=== PATIENT | male | born 1935 | race Caucasian/White ===

== ENCOUNTER 2016-11-05 14:40 | Inpatient (IN) ==
[2016-11-05] MEDS ORDERED: FUROSEMIDE 100 MG/10 ML VIAL IV STA (15:32)
--- NOTE | 2016-11-05 15:54 | EKG Report ---
Stationary ECG Study [facility] ER Test Date: 11/05/2016 3:53:13 PM Pat Name: JEANETTE SOLORZANO Department: Room: Gender: M Upper Marker: : 1935 Requested by: Mike Saldivar Order Number: [id number] Reading MD: CHATO ANDERSON Intervals [place] Rate: 77 P: 76 [place]: 170 QRS: 47 QRSD: 92 T: -1 QT: 368 QTc: 400 Interpretive Statements SINUS RHYTHM POSSIBLE INFERIOR MYOCARDIAL INFARCTION, OF INDETERMINATE AGE Electronically Signed On 11-09-16 16:11:53 CDT by CHATO ANDERSON [email or web address]
--- NOTE | 2016-11-05 15:57 | XRay Report ---
Referring Physician: Mike Alfaro Exam: XR chest 1V portable Date: November 05, 2016 at 3:42 PM Reason: Shortness of breath Comparison: Chest 2 views March 29, 2016 Findings: The cardiac silhouette is mildly enlarged. There are also diffuse reticular opacities within both lungs. This could represent pulmonary edema or pneumonia. No pneumothorax or pleural effusion is identified. There is mild stable apical pleural thickening bilaterally. No acute osseous process is seen. Impression: 1. The cardiac silhouette is mildly enlarged today. This could reflect mild cardiomegaly or a pericardial effusion. 2. There are diffuse reticular opacities within both lungs. This could represent pulmonary edema or pneumonia. Pulmonary edema is favored. PROCEDURE INTERPRETED AT [facility] DEPARTMENT OF RADIOLOGY Final Report Signed by: Dr. Kilo Rider
[2016-11-05 16:04] LABS: Basophils % 0.4 % (0.0-0.8); Eosinophils # 0.1 10*3/uL (0.0-0.87); Eosinophils % 1.1 % (0.00-10.9); Hematocrit 33.5 VOL% (42.0-52.0); Hemoglobin 11.4 GM/DL (14.0-18.0); Immature Granulocytes % 0.4 %; Immature Granulocytes Absolute 0.03 #; Lymphocytes # 1.3 10*3/uL (1.4-4.0); Lymphocytes % 18.7 % (21.2-54.2); Mean Corpuscular Hemoglobin 33 PG (27-34); Mean Corpuscular Volume 95.4 FL (87-102); Mean Platelet Volume 11.5 FL (9.6-12.0); Monocytes # 0.6 10*3/uL (0.11-0.8); Monocytes % 7.9 % (1.7-12.7); Neutrophils % 71.5 % (38.7-73.9); Platelet Count 286 T/CUMM (130-400); Red Blood Count 3.51 MC/CUMM (3.8-5.5); Red Cell Distribution Width 14.6 % (9.3-17.3); White Blood Count 7.1 T/CUMM (4-12)
[2016-11-05] MEDS ORDERED: FUROSEMIDE 100 MG/10 ML VIAL ONE (16:17)
[2016-11-05 16:34] LABS: Alanine Aminotransferase 91 U/L (16-61); Albumin 2.4 G/DL (3.4-5.0); Alkaline Phosphatase 260 U/L (45-117); Aspartate Amino Transferase 73 U/L (0-37); Blood Urea Nitrogen 8 MG/DL (7-18); Calcium 8.5 MG/DL (8.5-10.1); Glucose 251 MG/DL (74-106); Magnesium 1.9 MG/DL (1.8-2.4); Osmolality,Calculated 275.1 MOS/KG (273-304); Potassium 4.6 MMOL/L (3.5-5.1); Sodium 135 MMOL/L (136-145); Total Protein 6.9 G/DL (6.4-8.3); Troponin I Only < 0.015 NG/ML (0.00-0.045)
[2016-11-05] MEDS ORDERED: LEVOFLOXACIN INJ 500 MG in PREMIX 1 EACH IV STA (16:48)
--- NOTE | 2016-11-05 16:55 | Emergency Department Note ---
Liang Dobbins Hilary, am scribing for, and in the presence of, Mike Alfaro MD 15:28. Dominic Dobbins Phillip K, MD, personally performed the services described in this documentation, ascribed by Ciera Tavera in my presence, and it is both accurate and complete [id number] . Arrival - Arrival Chief Complaint: Upper Respiratory Stated Complaint: cant breathe, hurting bad ED Nursing Triage Note: C/o cough, congestion, body aches, sore throat, and wheezing-onset last week. Mode of Arrival: Wheelchair Limitations: No Limitations Source: Patient, RN Notes Reviewed - History of Present Illness HPI Narrative: Pt is a 80 y/o male presenting to the ED with c/o upper respiratory pain which onset 6 days ago. Pt called Dr Gonsales on Wednesday and started cough medicine and Z junaid. Pt confirms sore throat, cough with yellow phlegm, SOB upon exertion, chest pain upon coughing, and chronic back pain but denies fever. Pt has a PMHx of CAD, HTN, Cerebrovascular Accident, TIA, IDDM, Hypothyroid, Asbestosis and celiac disease. No other complaints or problems stated in the ED. Onset (ago): day(s) Allergies/Adverse Reactions: Allergies Allergy/AdvReac Type Severity Reaction Status Date / Time aspirin AdvReac Nausea Verified 11/21/15 11:45 Home Medications: Home Medications Medication Instructions Recorded Confirmed Type Aspirin [Ecotrin] 81 mg PO DAILY 11/21/15 03/26/16 History Atorvastatin [Lipitor] 40 mg PO DAILY 11/21/15 03/26/16 History Cilostazol [Pletal] 100 mg PO BID 11/21/15 03/26/16 History Ferrous Sulfate 1 tablet PO BID 11/21/15 03/26/16 History Folic Acid 0.8 mg PO DAILY 11/21/15 03/26/16 History Gabapentin 600 mg PO BEDTIME 11/21/15 03/26/16 History Insulin Glargine [Lantus] 14 unit SUBCUT BEDTIME 11/21/15 03/26/16 History Levothyroxine Tab [Synthroid Tab] 137 mcg PO DAILY@0700 11/21/15 03/26/16 History Pantoprazole Tab [Protonix Tab] 40 mg PO BID 11/21/15 03/26/16 History Potassium Chloride 10 meq PO DAILY 11/21/15 03/26/16 History Pramipexole Di-HCl [Pramipexole 1 mg PO BEDTIME 11/21/15 03/26/16 History Dihydrochloride] Psyllium Seed (with Sugar) 2 each PO DAILY 11/21/15 03/26/16 History [Metamucil Fiber Wafer] traMADol TAB [Ultram] 50 mg PO DAILY 11/21/15 03/26/16 History Apixaban [Eliquis] 5 mg PO BID #90 tablet 04/03/16 Rx Review of System - Review of System 12 point system: reviewed and no additional remarkable complaints except as stated - Review of System Constitutional: Absent: fever Head/Ears/Nose/Throat: Present: sore throat Respiratory: Present: cough, respiratory distress (SOB) Cardiovascular: Present: chest pain Gastrointestinal: Absent: abdominal pain Musculoskeletal: Present: back pain (chronic back pain) Medical,Surgical,& Family Hx - Medical History Cardio: History of: CAD, Hypertension Neurology: History of: Cerebrovascular Accident, TIA Endocrine: History of: Diabetes Mellitus (IDDM), Thyroid Disorder (Hypothyroid) Respiratory: History of: Respiratory Problems (Asbestosis) Gastrointestinal: History of: GI Problems (Celiac Disease) - Surgical History HEENT Surgeries: Surgical HX of: Eye Surgery - Social History Smoking Status: Former smoker Frequency of Alcohol Use: None Type of Drug Use: None Exam Vital Signs: Vital Signs Temperature 98.2 F 11/05/16 15:07 Pulse Rate 79 11/05/16 16:30 Respiratory Rate 16 11/05/16 16:30 Blood Pressure 135/69 11/05/16 16:30 O2 Sat by Pulse Oximetry 100 11/05/16 16:30 - General General appearance: alert, in no apparent distress - Head Head exam: Present: atraumatic, normocephalic - Eye Eye exam: Present: normal appearance, PERRL, EOMI - ENT ENT exam: Present: mucous membranes moist, TM's normal bilaterally. Absent: mucous membranes dry - Neck Neck exam: Present: full ROM, trachea midline. Absent: tenderness - Chest Chest inspection: Present: symmetric chest wall rise. Absent: tenderness - Respiratory Respiratory exam: Present: rales (bilaterally) - Cardiovascular Cardiovascular exam: Present: regular rate, normal rhythm, normal heart sounds. Absent: murmur, rubs, gallop - Abdominal Exam Abdominal exam: Present: soft, normal bowel sounds. Absent: distention, tenderness - Extremities Exam Extremities exam: Present: full ROM, pedal edema (2+ edema bilaterally). Absent : tenderness - Back Exam Back exam: Present: full ROM. Absent: tenderness - Neurological Exam Neurological exam: Present: alert, oriented X3, CN II-XII intact. Absent: motor sensory deficit - Psychiatric Psychiatric exam: Present: normal affect, normal mood - Skin Skin exam: Present: warm, dry, intact, normal color. Absent: rash Course Course Narrative: Patient discussed with the hospitalist who will admit for further evaluation. Results - Labs CBC & BMP: 11/05/16 15:55 11/05/16 15:55 Lab Results: I have reviewed the patients labs (BNP is 429) Labs: Laboratory Tests 11/05/16 15:55 WBC 7.1 RBC 3.51 L Hgb 11.4 L Hct 33.5 L Lymph % (Auto) 18.7 L Lymph # (Auto) 1.3 L - EKG EKG results: interpreted by HANNAH, sinus rhythm (Possible old inferior ID) - Diagnostic Findings Procedure: Chest x-ray: report reviewed by me (1. The cardiac silhouette is mildly enlarged today. This could reflect mild cardiomegaly or pericardial effusion. 2. There are diffuse reticular opacities within both lungs. This could represent pulmonary edema or pneumonia. Pulmonary edema is favored. ) Disposition Clinical Impression: Congestive heart failure, Bronchitis Case discussed with: patient, patient's family Disposition: Still a Patient Condition: Guarded Additional Instructions: Admit to the hospitalist.
[2016-11-05] MEDS ORDERED: LEVOFLOXACIN INJ 100 ML IV ONE (17:26)
--- NOTE | 2016-11-05 17:46 | Hospitalist History & Physical ---
<Lennox Richardson - Last Filed: 11/05/16 17:37> Assessment and Plan - Time spent with patient Time spent with patient: Greater than 30 minutes (1) Congestive heart failure Status: Acute Assessment and plan: BNP 429, troponin negative, sodium 135. Chest x-ray favors pulmonary edema. Patient will be admitted to telemetry for further evaluation and treatment. Echocardiogram. Trend labs. Patient is followed by Dr. Doss Current Visit: Yes (2) Insulin dependent diabetes mellitus Status: Acute Assessment and plan: Serum glucose 251. Sliding scale insulin, Accu-Cheks ACHS. Current Visit: No (3) Paroxysmal atrial fibrillation Status: Acute Assessment and plan: Rate controlled. Patient does take Eliquis daily Current Visit: No History of Present Illness Chief complaint: Shortness of breath History of present illness: Mr. Jaramillo is a 80 year old male with a past medical history significant for diabetes, atrial fibrillation, hypertension who presents to the emergency room with complaints of progressive shortness of breath with onset last Wednesday. The patient reports that he has been short of breath with pleuritic chest pains since last Wednesday and decided to come to the emergency room to have it further evaluated because he "did not want to go through the weekend without having it checked". On exam, the patient complains of severe shortness of breath and pain with inspiration as well as edema bilaterally in his feet. He says that he has a history of edematous legs and cramps but has never been diagnosed with a DVT. He also states that he has to steady himself when standing initially otherwise he falls. He denies lightheadedness, headache, chest pain of cardiac origin, palpitations, near syncope, abdominal pain or change in bowel habits, numbness or tingling. Preliminary lab work reveals WBC 7.1 hemoglobin 11.4 hematocrit 30.5 sodium 135 potassium 4.6 glucose 251 BNP 429 and troponin less than 0.015. Chest x-ray reveals possible cardiomegaly and diffuse reticular opacities which favors pulmonary edema. Patient will be admitted to hospital medicine service for further evaluation and treatment. He is a full code. This case been discussed with Dr. Subramanian, admitting physician. Home Medications Medication Instructions Recorded Confirmed Type Aspirin [Ecotrin] 81 mg PO QAM 11/21/15 11/05/16 History Atorvastatin [Lipitor] 40 mg PO QPM 11/21/15 11/05/16 History Ferrous Sulfate 1 tablet PO BID 11/21/15 11/05/16 History Insulin Glargine [Lantus] 12 unit SUBCUT BEDTIME 11/21/15 11/05/16 History Levothyroxine Tab [Synthroid Tab] 137 mcg PO DAILY@0700 11/21/15 11/05/16 History Pramipexole Di-HCl [Pramipexole 1 mg PO BEDTIME 11/21/15 11/05/16 History Dihydrochloride] Apixaban [Eliquis] 2.5 mg PO QAM 11/05/16 11/05/16 History Azithromycin Tab [Zithromax Tab] 250 mg PO DAILY 11/05/16 11/05/16 History Codeine Phosphate/Guaifenesin 10 ml PO Q4H PRN 11/05/16 11/05/16 History [Cheratussin AC Syrup] Insulin Lispro [HumaLOG] 1 unit SUBCUT TIDPC 11/05/16 11/05/16 History Lisinopril [Lisinopril] 2.5 mg PO QAM 11/05/16 11/05/16 History Memantine HCl [Namenda XR] 28 mg PO QPM 11/05/16 11/05/16 History Potassium Chloride 10 meq PO QPM 11/05/16 11/05/16 History Allergies Allergy/AdvReac Type Severity Reaction Status Date / Time aspirin AdvReac Nausea Verified 11/21/15 11:45 Medical,Surgical,& Family Hx - Medical History Cardio: History of: CAD, Hypertension Neurology: History of: Cerebrovascular Accident, TIA Endocrine: History of: Diabetes Mellitus (IDDM), Thyroid Disorder (Hypothyroid) Respiratory: History of: Respiratory Problems (Asbestosis) Gastrointestinal: History of: GI Problems (Celiac Disease) - Surgical History HEENT Surgeries: Surgical HX of: Eye Surgery - Family History Family History: Reports;: Family Heart Disease, Family Hypertension Denies;: Family Cancer - Social History Smoking Status: Former smoker Frequency of Alcohol Use: None Type of Drug Use: None Marital Status: Lives With:: Spouse Functional capacity: independent ambulation - Constitutional Constitutional: Present: frequent falls. Absent: chills, daytime sleepiness, fatigue, weakness - EENT Eyes: Absent: blurry vision, loss of vision Ears: Absent: decreased hearing, ear pain Nose, mouth and throat: Absent: headache(s), vertigo - Cardiovascular Cardiovascular: Present: dyspnea, dyspnea on exertion, edema. Absent: chest pain at rest, radiating jaw, neck or arm pain, lightheadedness, orthopnea, palpitations - Respiratory Respiratory: Present: dyspnea, dyspnea on exertion, pain on inspiration. Absent : cough, hemoptysis, wheezing - Gastrointestinal Gastrointestinal: Absent: abdominal pain, change in bowel habits, constipation, diarrhea, nausea, vomiting - Genitourinary Genitourinary: Absent: difficulty urinating, dysuria, flank pain - Musculoskeletal Musculoskeletal: Present: back pain. Absent: arthralgias - Neurological Neurological: Present: frequent falls. Absent: abnormal gait, confusion, disequilibrium, numbness, syncope - Psychiatric Psychiatric: Absent: anxiety, depression - Endocrine Endocrine: Absent: cold intolerance, fatigue, heat intolerance - Hematologic/Lymphatic Hematologic/Lymphatic: Present: easy bleeding, easy bruising Exam - Constitutional Exam: General appearance: normal weight, mild distress - Head Head exam: Present: normocephalic, atraumatic - Eye Eye exam: Present: EOMI. Absent: conjunctival injection, nystagmus Pupils: Present: MARY, normal accommodation - ENT ENT exam: Present: normal exam, normal external ear exam - Neck Neck exam: Present: normal inspection. Absent: lymphadenopathy, tenderness, thyromegaly - Respiratory Respiratory exam: Present: Decreased breath sounds. Absent: wheezes - Cardiovascular Cardiovascular exam: Present: regular rate and rhythm. Absent: carotid bruit, gallop, rubs - GI/Abdominal GI/Abdominal exam: Present: normal bowel sounds. Absent: ascites, distended, mass - Extremities Exam Extremities exam: Present: normal inspection, normal capillary refill, 1+ edema bilateral lower extremity - Back Exam Back exam: Absent: CVA tenderness (L), CVA tenderness (R) - Neurological Exam Neurological exam: Present: alert, oriented X3 - Psychiatric Psychiatric exam: Present: normal affect, normal mood - Skin Skin exam: Present: normal color, warm, dry Results - Labs CBC & BMP: 11/05/16 15:55 11/05/16 15:55 Lab Results: I have reviewed the past 24 hour labs - EKG EKG results: interpreted by ERMD - Diagnostic Findings Procedure: Chest x-ray: image reviewed by me, report reviewed by me <Loli Subramanian Last Filed: 11/05/16 18:37> Assessment and Plan (1) Congestive heart failure Status: Acute Assessment and plan: serial troponins and EKGs, lasix 40 mg IV bid, cont coreg Current Visit: Yes (2) Insulin dependent diabetes mellitus Status: Acute Assessment and plan: restart lantus Current Visit: No (3) Paroxysmal atrial fibrillation Status: Acute Current Visit: No (4) Celiac disease Status: Chronic Assessment and plan: monitor diarrhea and replace potassium Current Visit: No History of Present Illness History of present illness: Mr. Jaramillo is a 80 year old male seen and examined. History and physical reviewed and edited. Increasing lower extremity edema and SOB, already had 500 ml of urine output in response to lasix. PMD Dr. Feliciano. Hx of smoking but quit Medical,Surgical,& Family Hx - Family History Family History: Denies;: Family Diabetes Exam - Constitutional Vitals: Period Temp Pulse Resp BP Sys/[place] Pulse Ox Last 24 Hr 79-99 16-17 124-129/66-68 96-100 Exam: 2+ pitting edema, diminished breath sounds, Results - Labs CBC & BMP: 11/05/16 15:55 11/05/16 15:55 - EKG EKG shows: sinus rhythm (q waves inferior leads) - Diagnostic Findings Procedure: Chest x-ray: report reviewed by me (chf )
[2016-11-05] MEDS ORDERED: DEXTROSE 50% 25 GM/50 ML VIAL IV PRN (19:00)
[2016-11-05] MEDS ORDERED: MAGNESIUM SULF RIDER 2 GM in PREMIX 1 EACH IV PRN (19:00)
[2016-11-05] MEDS ORDERED: ZALEPLON 5 MG CAPSULE PO PRN (19:00)
[2016-11-05] MEDS ORDERED: GLUCAGON 1 MG VIAL IM PRN (19:00)
[2016-11-05] MEDS ORDERED: ACETAMINOPHEN 325 MG TABLET PO PRN (19:00)
[2016-11-05] MEDS ORDERED: ONDANSETRON 4 MG/2 ML VIAL IV PRN (19:00)
[2016-11-05] MEDS ORDERED: POTASSIUM CHLORIDE 20 MEQ TABLET PO PRN (19:00)
[2016-11-05] MEDS ORDERED: LACTULOSE 20 GM/30 ML UDCUP PO PRN (19:00)
[2016-11-05] MEDS ORDERED: MAGNESIUM SULF RIDER 4 GM in PREMIX 1 EACH IV PRN (19:00)
[2016-11-05 20:22] LABS: Free T4 (Free Thyroxine) 1.06 NG/DL (0.76-1.46); Thyroid Stimulating Hormone 5.27 uIU/ml (0.358-3.74)
[2016-11-05] MEDS ORDERED: GABAPENTIN 600 MG TABLET PO SCH (21:00)
[2016-11-05] MEDS ORDERED: APIXABAN 5 MG TABLET PO SCH (21:00)
[2016-11-05] MEDS: INSULIN GLARGINE 100 UNIT/ML SUBCUT SCH (22:19)
[2016-11-05] MEDS: INSULIN LISPRO 100 UNIT/ML SUBCUT SCH ×2 (22:21→23:09)
[2016-11-05] MEDS: PRAMIPEXOLE 1 MG TABLET PO SCH (22:22)
[2016-11-05] MEDS: MEMANTINE 10 MG TABLET PO SCH (22:22)
[2016-11-05] MEDS: CARVEDILOL 3.125 MG TABLET PO SCH (22:23)
[2016-11-05] MEDS: POTASSIUM CHLORIDE 10 MEQ TABLET PO SCH (22:23)
[2016-11-06 05:01] LABS: Basophils % 0.4 % (0.0-0.8); Eosinophils # 0.1 10*3/uL (0.0-0.87); Eosinophils % 1.6 % (0.00-10.9); Hemoglobin 10.1 GM/DL (14.0-18.0); Immature Granulocytes % 0.6 %; Immature Granulocytes Absolute 0.03 #; Lymphocytes # 1.5 10*3/uL (1.4-4.0); Lymphocytes % 28.4 % (21.2-54.2); Mean Corpuscular HGB Conc 33.7 GM/DL (32-36); Mean Corpuscular Hemoglobin 32 PG (27-34); Mean Corpuscular Volume 93.5 FL (87-102); Mean Platelet Volume 12.2 FL (9.6-12.0); Monocytes # 0.4 10*3/uL (0.11-0.8); Monocytes % 8.6 % (1.7-12.7); Neutrophils # 3.1 10*3/uL (1.4-7.4); Neutrophils % 60.4 % (38.7-73.9); Platelet Count 282 T/CUMM (130-400); Red Blood Count 3.21 MC/CUMM (3.8-5.5); Red Cell Distribution Width 14.5 % (9.3-17.3); White Blood Count 5.1 T/CUMM (4-12)
[2016-11-06 05:36] LABS: Osmolality,Calculated 285.4 MOS/KG (273-304); Potassium 4.6 MMOL/L (3.5-5.1)
[2016-11-06] MEDS: LEVOTHYROXINE 137 MCG TABLET PO SCH (06:06)
[2016-11-06] MEDS: PANTOPRAZOLE 40 MG TABLET PO SCH (08:58)
[2016-11-06] MEDS: ATORVASTATIN 40 MG TABLET PO SCH (08:58)
[2016-11-06] MEDS: CARVEDILOL 3.125 MG TABLET PO SCH ×2 (08:58→17:00)
[2016-11-06] MEDS: APIXABAN 2.5 MG TABLET PO SCH (08:58)
[2016-11-06] MEDS: MEMANTINE 10 MG TABLET PO SCH ×2 (08:59→20:36)
[2016-11-06] MEDS: INSULIN LISPRO 100 UNIT/ML SUBCUT SCH ×4 (08:59→20:36)
[2016-11-06] MEDS: FUROSEMIDE 40 MG/4 ML VIAL IV SCH ×2 (08:59→16:35)
[2016-11-06] MEDS ORDERED: LISINOPRIL 2.5 MG TABLET PO SCH (09:00)
[2016-11-06] MEDS ORDERED: NON-FORMULARY MEDICATION (Potassium Chloride [Potassium Chloride] 10 MEQ) PO SCH (09:00)
--- NOTE | 2016-11-06 16:24 | Hospitalist Progress Note ---
Assessment and Plan (1) Congestive heart failure Status: Acute Assessment and plan: Serial troponins negative. Decrease Lasix to once a day. Continue Coreg. Current Visit: Yes (2) Insulin dependent diabetes mellitus Status: Acute Assessment and plan: Continue Lantus Current Visit: No (3) Paroxysmal atrial fibrillation Status: Acute Assessment and plan: Currently in sinus rhythm continue Coreg and Eliquis. Current Visit: No (4) Celiac disease Status: Chronic Assessment and plan: Stable Current Visit: No (5) Hypomagnesemia Status: Acute Assessment and plan: Magnesium 2 g IV Current Visit: Yes Hospitalist: Subjective Interval history: Mr. Jaramillo said he sleeps better by sleeping up in the chair which is fine. He does have cramps every morning but he has those at home. He said his pain would be ease with some [place] 10 mg. He also reports a shoulder injury after a fall on that was in the last month and has been unable to raise his arm afterwards. Exam - Constitutional Vitals: Period Temp Pulse Resp BP Sys/[place] Pulse Ox Last 24 Hr 97.2 F-99.1 F 0-99 16-18 93-131/55-79 95-100 Exam: Heart Rate-[RRR] Lungs-[CTAB but diminished ] GI-[+bs soft, NT] Ext-[1+ edema] Neuro [Motor 5/5], [alert and oriented times 3] psych [normal mood and affect] General [no acute distress] Results - Labs CBC & BMP: 11/06/16 03:13 11/06/16 03:13 Lab Results: I have reviewed the past 24 hour labs
[2016-11-06] MEDS ORDERED: MAGNESIUM SULF RIDER 2 GM in PREMIX 1 EACH IV ONE (16:25)
--- NOTE | 2016-11-06 16:54 | Magnetic Resonance Report ---
MR shoulder RT wo con Indication: Pain after falling injury Technique: Axial, sagittal, and coronal oblique imaging is performed using T1, T2, proton density fat-sat and gradient sequences. No contrast was used. Findings: There is moderate degenerative change of the acromioclavicular joint and the joint alignment is normal. The acromion appears normally formed. The supraspinatus tendon has a small partial articular surface tear at the insertion near the supraspinatus infraspinatus junction. The remaining supraspinatus, infraspinatus and intra-articular biceps tendon of a moderate amount of immediate signal but no other focal tears. Subscapularis tendons and remaining biceps tendons are intact and show no evidence of tearing. Biceps labral anchor and labrum appear within normal limits for non-arthrogram evaluation. Osseous marrow signal appears within normal limits. No distinct chondral defects are identified. Impression: Moderate acromioclavicular joint osteoarthrosis. Small partial articular surface tear supraspinatus tendon at insertion. Moderate tendinosis remaining supraspinatus, infraspinatus and intra-articular biceps tendon. PROCEDURE INTERPRETED AT [facility] DEPARTMENT OF RADIOLOGY Final Report Signed by: Dr. Cayden Delaney
--- NOTE | 2016-11-06 18:50 | ECHO Report ---
Severiano Jaramillo Exam Date: 11/06/2016 10:11 Referring Physician: Technologist: Susy Sears Age: 80 Ht (in): 69 Wt (lb): 130 Gender: M Exam Location: [facility] Echo Indications: bronchitis, CHF BP: 119 / 67 HR: 72 Rhythm: Sinus Technical Quality: Fair IMPRESSIONS 1. Left ventricle is normal size with global hypokinesis and ejection fraction 30%. There is mild concentric left ventricular hypertrophy. Possible mild diastolic dysfunction. 2. Other cardiac chambers are normal size. 3. Mild aortic valve sclerosis with mild annular calcification. 4. Sclerotic aortic valve with mild aortic stenosis and insufficiency. 5. Mild tricuspid regurgitation and pulmonic insufficiency. 6. No evidence of elevated right-sided pressures. MEASUREMENTS (Male / Female) Normal Values 2D ECHO LV Diastolic Diameter PLAX 4.2 cm 4.2 - 5.9 / 3.9 - 5.3 cm LV Systolic Diameter PLAX 3.5 cm LV Fractional Shortening PLAX 15.7 % IVS Diastolic Thickness 1.4 cm 0.6 - 1.0 / 0.6 - 0.9 cm LVPW Diastolic Thickness 1.0 cm 0.6 - 1.0 / 0.6 - 0.9 cm RV Internal Dim ED PLAX 2.2 cm Aortic Root Diameter 3.0 cm LA Systolic Diameter LX 2.7 cm 3.0 - 4.0 / 2.7 - 3.8 cm DOPPLER TR Peak Velocity 209.0 cm/s TR Peak Gradient 17.5 mmHg FINDINGS Left Ventricle Left ventricle is normal size and global hypokinesis with an ejection fraction of 30%. There is at least mild concentric left ventricular hypertrophy. Possible mild diastolic dysfunction. Right Ventricle Normal right ventricular size. Right Atrium Normal right atrial size. Left Atrium Normal left atrial size. Mitral Valve Mild mitral valve sclerosis. Mild mitral annular calcification. Aortic Valve Aortic valve appears to be tricuspid with diffuse sclerosis. By Doppler there is mild aortic stenosis with mild insufficiency. Tricuspid Valve Morphologically normal tricuspid valve. Mild tricuspid valve regurgitation. Tricuspid regurgitation velocities suggest a PAP of 23- 28 mmHg. Pulmonic Valve Morphologically normal pulmonic valve. Mild pulmonary valve regurgitation. Pericardium No pericardial effusion. Aorta Normal size aortic root and proximal ascending aorta. Nitin Panda MD (Electronically Signed) Final Date: 06 Nov 2016 18:49
[2016-11-06] MEDS: PRAMIPEXOLE 1 MG TABLET PO SCH (20:35)
[2016-11-06] MEDS: INSULIN GLARGINE 100 UNIT/ML SUBCUT SCH (20:36)
[2016-11-06] MEDS: POTASSIUM CHLORIDE 10 MEQ TABLET PO SCH (20:36)
[2016-11-07 05:13] LABS: Calcium 8.6 MG/DL (8.5-10.1); Osmolality,Calculated 276.7 MOS/KG (273-304); Potassium 4.6 MMOL/L (3.5-5.1)
[2016-11-07] MEDS: LEVOTHYROXINE 137 MCG TABLET PO SCH (05:59)
[2016-11-07 07:50] VITALS: BP 110/79
[2016-11-07] MEDS: INSULIN LISPRO 100 UNIT/ML SUBCUT SCH (08:49)
[2016-11-07] MEDS: MEMANTINE 10 MG TABLET PO SCH (08:51)
[2016-11-07] MEDS: CARVEDILOL 3.125 MG TABLET PO SCH (08:51)
[2016-11-07] MEDS: PANTOPRAZOLE 40 MG TABLET PO SCH (08:51)
[2016-11-07] MEDS: ATORVASTATIN 40 MG TABLET PO SCH (08:51)
[2016-11-07] MEDS: APIXABAN 2.5 MG TABLET PO SCH (08:51)
[2016-11-07] MEDS ORDERED: FUROSEMIDE 40 MG/4 ML VIAL IV SCH (09:00)
--- NOTE | 2016-11-07 10:02 | Discharge Summary ---
Hospital Course - Hospital Course Hospital Course: 80-year-old male with a history of insulin-dependent diabetes, atrial fib and hypertension presents with complaints of shortness of breath. BNP was elevated for 29. Echocardiogram showed an EF of 30% with mild diastolic dysfunction. Patient already has an appointment with Dr. doss this next week. He was given IV Lasix and diuresed well. I have started him on Coreg but had stopped his lisinopril due to low blood pressure. Patient has very volatile blood sugars running from 300-30. We will move his Lantus to 12 units every morning. He will continue to take an insulin sliding scale. 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 Michelle Bateman at the [facility] in [place] who is an mechanical pencils assembler. Patient has atrial fib and is rate controlled on medications. Continue Eliquis. Patient complains a right shoulder pain after falling several months ago. MRI of the shoulder shows a small tear in his supraspinatus tendon with moderate tendinosis. I will see him and send him to see Dr. Junior in 2 weeks. She notes chronic diarrhea due to celiac disease. He has a mild anemia but is stable. His magnesium was low but was replaced. Follow-up with Dr. Junior in 2 weeks, Dr. Doss as scheduled, Dr. Gonsales in 2 weeks, Dr. Michelle Bateman endocrinology at the [facility] as soon as possible. - Time spent with patient Time with patient DS: Greater than 30 minutes (50 min) Diagnosis - Discharge Diagnosis (1) Congestive heart failure Status: Acute (2) Insulin dependent diabetes mellitus Status: Acute (3) Paroxysmal atrial fibrillation Status: Acute (4) Celiac disease Status: Chronic (5) Hypomagnesemia Status: Acute Discharge Plan - Discharge Data Disposition: Disch To Home/Self Care Condition at Discharge: Stable Discharge Diet: diabetic diet Activity: resume usual activities as tolerated Hygiene: no restrictions Weight Bearing at Discharge: full weight bearing Driving: no restrictions - Discharge Medications New Carvedilol [Coreg] 3.125 mg PO BID W/MEALS #60 tablet Furosemide Tab [Lasix Tab] 40 mg PO DAILY #30 tablet Continue Pramipexole Di-HCl [Pramipexole Dihydrochloride] 1 mg PO BEDTIME Ferrous Sulfate 1 tablet PO BID Levothyroxine Tab [Synthroid Tab] 137 mcg PO DAILY@0700 Atorvastatin [Lipitor] 40 mg PO QPM Potassium Chloride 10 meq PO QPM Insulin Lispro [HumaLOG] 1 unit SUBCUT TIDPC Memantine HCl [Namenda XR] 28 mg PO QPM Apixaban [Eliquis] 2.5 mg PO QAM Changed Insulin Glargine [Lantus] 12 unit SUBCUT DAILY #0 Discontinued Aspirin [Ecotrin] 81 mg PO QAM Lisinopril [Lisinopril] 2.5 mg PO QAM Codeine Phosphate/Guaifenesin [Cheratussin AC Syrup] 10 ml PO Q4H PRN PRN Reason: Cough Azithromycin Tab [Zithromax Tab] 250 mg PO DAILY - Follow Up or Referral Follow Up: Mana bateman [Other] - 2 Weeks Danny Junior Jr., MD [Physician] - 2 Weeks (right shoulder torn rotator ) Don Gonsales MD [Physician] - 2 Weeks Stevie Doss MD [Physician] - 1 Week (as scheduled ) - Forms/Instructions Exam - Constitutional Vitals: Period Temp Pulse Resp BP Sys/Morley Pulse Ox Last 24 Hr 97.3 F-98.8 F 64-91 16-20 92-114/47-79 93-98 General appearance: normal weight, no acute distress - Respiratory Respiratory exam: Present: clear to auscultation bilaterally. Absent: rhonchi, wheezes - Cardiovascular Cardiovascular exam: Present: regular rate and rhythm - GI/Abdominal GI/Abdominal exam: Present: normal bowel sounds, soft. Absent: tenderness Discharge Results Procedures and tests throughout hospitalization: Pending Orders 11/08/16 04:00 Basic Metabolic Panel IN AM Labs on day of discharge: Labs from last 24 hours 11/07/16 11/07/16 11/06/16 07:32 03:44 19:38 Sodium 138 Potassium 4.6 Chloride 100 Carbon Dioxide 30 Anion Gap 12.6 BUN 21 H Creatinine 1.20 GFR Calculation 51 BUN/Creatinine Ratio 17.00 Glucose 80 POC Glucose 32 L* 328 H Calculated Osmolality 276.7 Calcium 8.6 11/06/16 11/06/16 17:07 11:42 Sodium Potassium Chloride Carbon Dioxide Anion Gap BUN Creatinine GFR Calculation BUN/Creatinine Ratio Glucose POC Glucose 299 H 53 L Calculated Osmolality Calcium DS: Provider Date of admission: 11/05/16 17:01 Primary care physician: . No PCP Attending physician on admission: Loli Subramanian MD Consults: 11/05/16 19:00 Consult to [facility], Educator [CONS] Routine Reason for Unemployment Specialist: Diabetes Education Consult to Physical Therapy [CONS] Routine Reason for Physical Therapy: Weakness Discharging clinician: Loli Subramanian MD
== END 2016-11-07 11:58 | disposition home or self-care (01) | DRG 293 ==
LOC: N.ED 14:40 → N.EDINP 17:01 → N.TELEN 17:40
PROVIDERS: ADMIT Internal Medicine; ATTEND Internal Medicine

== ENCOUNTER 2017-01-16 15:24 | Inpatient (IN) ==
--- NOTE | 2017-01-16 15:57 | EKG Report ---
Stationary ECG Study [facility] ER Test Date: 01/16/2017 3:39:55 PM Pat Name: JEANETTE SOLORZANO Department: Room: Gender: M Tooling Inspector: : 1935 Requested by: Jemima Gonzalez Order Number: [id number] Reading MD: CHATO ANDERSON Intervals [place] Rate: 95 P: 71 HI: 182 QRS: 65 QRSD: 89 T: -55 QT: 351 QTc: 403 Interpretive Statements SINUS RHYTHM Electronically Signed On 01-18-17 18:13:22 CDT by CHATO ANDERSON [email or web address]
--- NOTE | 2017-01-16 16:17 | XRay Report ---
XR chest 2V Indication: Chest pain Comparison: 05 Nov 2016 Findings: The heart and mediastinum are normal in size and configuration. The pulmonary vascularity is normal in caliber. Lung volumes are increased with prominent bronchial markings. No lung infiltrates, effusions, pneumothorax or other abnormality is demonstrated. Impression: Chronic lung changes. No acute process. PROCEDURE INTERPRETED AT [facility] DEPARTMENT OF RADIOLOGY Final Report Signed by: Dr. Cayden Delaney
[2017-01-16 16:31] LABS: Alanine Aminotransferase 56 U/L (16-61); Albumin 2.3 G/DL (3.4-5.0); Alkaline Phosphatase 165 U/L (45-117); Aspartate Amino Transferase 38 U/L (0-37); Bilirubin,Total < 0.39 MG/DL (0.2-1.0); Blood Urea Nitrogen 40 MG/DL (7-18); Calcium 8.5 MG/DL (8.5-10.1); Glucose 130 MG/DL (74-106); Magnesium 2.2 MG/DL (1.8-2.4); Osmolality,Calculated 290.4 MOS/KG (273-304); Potassium 4.4 MMOL/L (3.5-5.1); Sodium 140 MMOL/L (136-145); Total Protein 5.4 G/DL (6.4-8.3)
[2017-01-16 16:41] LABS: Troponin I Only 0.037 NG/ML (0.00-0.045)
[2017-01-16] MEDS ORDERED: SODIUM CHLORIDE 0.9% 500 ML IV STA (17:01)
[2017-01-16] MEDS ORDERED: ALBUTEROL 2.5 MG/3 ML NEB RESP TX STA (17:03)
--- NOTE | 2017-01-16 17:06 | Emergency Department Note ---
Pelon Dobbins Manpreet, am scribing for, and in the presence of, Mike Fry MD 17: 01. Lisandra Dobbins James D, MD, personally performed the services described in this documentation, ascribed by Jose Antonio Bird in my presence, and it is both accurate and complete . Arrival - Arrival Chief Complaint: Shortness of Breath Stated Complaint: cant breathe ED Nursing Triage Note: pt reports he had sudden onset of sob while doing a job this morning. reports that he injured his chest about two weeks and it has been hurting since then. reports pain radiates to left side of arm. reports 45 pound wt loss over the pat year. Mode of Arrival: Wheelchair Limitations: No Limitations Source: Patient - History of Present Illness HPI Narrative: Pt is a 81 y/o male who presents to the ED with CC of SOB since this AM. Pt reports of injuring his chest 1 week and has been hurting and SOB since. The SOB gotten worse today and the pt also c/o BROWN. Pt denies coughing but reports of melena for one week. Pt was hx'ed November 2016 for CHF. No other pains/ complaints reported to ED. Onset (ago): week(s) (1 week) Consistency: intermittent Severity: mild Severity scale (1-10): 3 Allergies/Adverse Reactions: Allergies Allergy/AdvReac Type Severity Reaction Status Date / Time aspirin AdvReac Nausea Verified 11/21/15 11:45 Home Medications: Home Medications Medication Instructions Recorded Confirmed Type Ferrous Sulfate 1 tablet PO BID 11/21/15 01/16/17 History Pramipexole Di-HCl [Pramipexole 1 mg PO BID 11/21/15 01/16/17 History Dihydrochloride] Apixaban [Eliquis] 2.5 mg PO QAM 11/05/16 01/16/17 History Insulin Lispro [HumaLOG] 1 unit SUBCUT DAILY 11/05/16 01/16/17 History Memantine HCl [Namenda XR] 28 mg PO QPM 11/05/16 01/16/17 History Potassium Chloride 10 meq PO QPM 11/05/16 01/16/17 History Insulin Glargine [Lantus] 12 unit SUBCUT DAILY #0 11/07/16 01/16/17 Rx Atorvastatin [Lipitor] 40 mg PO BEDTIME 01/16/17 01/16/17 History Carbidopa/Levodopa [Carbidopa-Levo 1 each PO DAILY 01/16/17 01/16/17 History ER 50-200 Tab] Carvedilol [Coreg] 3.125 mg PO BID 01/16/17 01/16/17 History Furosemide Tab [Lasix Tab] 20 mg PO DAILY 01/16/17 01/16/17 History Hydrocodone/Acetaminophen 1 each PO DAILY PRN 01/16/17 01/16/17 History [Hydrocodon-Acetaminophn 10-325] Levothyroxine Tab [Synthroid Tab] 50 mcg PO DAILY 01/16/17 01/16/17 History Review of System - Review of System 12 point system: reviewed and no additional remarkable complaints except as stated - Review of System Constitutional: Present: weakness. Absent: chills, diaphoresis, fever Respiratory: Present: respiratory distress. Absent: cough Cardiovascular: Present: chest pain, dyspnea on exertion Gastrointestinal: Present: melena. Absent: abdominal pain, nausea, vomiting, hematochezia Musculoskeletal: Absent: back pain Neurological: Absent: headache, weakness Medical,Surgical,& Family Hx - Medical History Cardio: History of: CAD, Hypertension Neurology: History of: Cerebrovascular Accident, TIA Endocrine: History of: Diabetes Mellitus (IDDM), Thyroid Disorder (Hypothyroid) Respiratory: History of: Respiratory Problems (Asbestosis) Gastrointestinal: History of: Crohn's Disease, GI Problems (Celiac Disease) Musculoskeletal: History of: Back/Neck Problems - Surgical History HEENT Surgeries: Surgical HX of: Eye Surgery - Family History Family History: Reports;: Family Heart Disease (father) Denies;: Family Cancer, Family Diabetes, Family Hypertension - Social History Smoking Status: Former smoker Exam Vital Signs: Vital Signs Temperature 97.7 F 01/16/17 16:28 Pulse Rate 92 H 01/16/17 16:34 Respiratory Rate 20 01/16/17 16:34 Blood Pressure 93/60 01/16/17 16:29 O2 Sat by Pulse Oximetry 99 01/16/17 16:29 GENERAL: This is a pale white male in no apparent distress. VITAL SIGNS: Reviewed HEENT: Head is atraumatic and normocephalic. Pupils are equal round react to light. Extraocular movements are intact. Conjunctiva pale. Oropharynx is benign with moist mucous membranes. NECK: Neck is soft and supple without tenderness. There are no masses. There is no lymphadenopathy. LUNGS: Lungs are clear to auscultation. Chest rises symmetrically. There is no chest wall tenderness. CV: Heart is regular rate and rhythm without murmurs rubs or gallops. ABDOMEN: Abdomen is soft, nontender to palpation. There are no abdominal abnormal masses palpated. There is no organomegaly. Bowel sounds are present and active. Rectal: Heme positive stool. SKIN: Skin is warm and dry. No rash. EXTREMITIES: Patient has full range of motion without tenderness. There is no pedal edema. NEUROLOGIC: Awake alert and oriented 4. Cranial nerves II through XII are grossly intact. Motor is 5 over 5 in all extremities bilaterally. Course - Consultations Consultation #1: Discussed with hospitalist. Patient will be admitted to their service. Time: : Results - Labs CBC & BMP: 01/16/17 15:58 01/16/17 15:56 Lab Results: I have reviewed the patients labs - Diagnostic Findings Procedure: Chest x-ray: image reviewed by me (Hyperinflation bilaterally without infiltrates) Disposition Clinical Impression: Upper GI bleed, Anemia secondary to upper GI bleed, COPD (chronic obstructive pulmonary disease) Case discussed with: patient, patient's family Disposition: Still a Patient Condition: Guarded Time of Disposition: 17:
[2017-01-16 17:16] LABS: PT Patient Result 10.4 SECS; Partial Thromboplastin Time 27.1 SECS (0-40)
[2017-01-16] MEDS ORDERED: PANTOPRAZOLE 40 MG VIAL IV STA (17:17)
[2017-01-16 17:20] LABS: Basophils % 0.1 % (0.0-0.8); Eosinophils # 0.1 10*3/uL (0.0-0.87); Eosinophils % 0.8 % (0.00-10.9); Immature Granulocytes % 0.8 %; Immature Granulocytes Absolute 0.07 #; Lymphocytes # 1.6 10*3/uL (1.4-4.0); Lymphocytes % 17.3 % (21.2-54.2); Mean Corpuscular Hemoglobin 34 PG (27-34); Mean Corpuscular Volume 104.8 FL (87-102); Mean Platelet Volume 10.6 FL (9.6-12.0); Monocytes # 0.5 10*3/uL (0.11-0.8); Monocytes % 5.5 % (1.7-12.7); Neutrophils # 6.8 10*3/uL (1.4-7.4); Neutrophils % 75.5 % (38.7-73.9); Platelet Count 292 T/CUMM (130-400); Red Blood Count 1.46 MC/CUMM (3.8-5.5); Red Cell Distribution Width 15.6 % (9.3-17.3)
[2017-01-16 17:21] LABS: Hemoglobin 4.9 GM/DL (14.0-18.0)
[2017-01-16 17:22] LABS: Hematocrit 15.3 VOL% (42.0-52.0)
[2017-01-16] MEDS ORDERED: PANTOPRAZOLE 40 MG VIAL IV ONE (17:37)
[2017-01-16 17:45] LABS: % Iron Saturation 17.7 % (18-50)
[2017-01-16 18:08] LABS: Folate > 24.0 NG/ML (5.4-24.0); Vitamin B12 586 PG/ML (211-911)
--- NOTE | 2017-01-16 18:15 | Hospitalist Progress Note ---
Assessment and Plan (1) GI bleed Status: Acute Assessment and plan: Admit to ICU. Pt. h&h 4.9/15.3. Cardiac monitoring. Transfuse 2 units of blood. Post infusion h&h. Gentle IVF hydration at 50 ml/hr. Clear liquid diet. PT/INR. Hold blood thinners. Consult GI for rec. Current Visit: Yes (2) Diabetes Status: Chronic Assessment and plan: Accuchecks achs. Initiate SSI. Hbg A1c in am. Current Visit: No Qualifiers: Diabetes mellitus type: type 2 (3) Congestive heart failure Status: Acute Assessment and plan: Stat BNP. Chest XR clear. Lasix in between units of blood. Start Lasix 20 mg po bid in am. Current Visit: No Exam - Constitutional Vitals: Period Temp Pulse Resp BP Sys/Morley Pulse Ox Last 24 Hr 97.7 F-97.7 F 86-115 16-22 90-93/45-60 97-99 General appearance: normal weight, no acute distress Results - Labs CBC & BMP: 01/16/17 15:58 01/16/17 15:56 Lab Results: I have reviewed the past 24 hour labs
[2017-01-16] MEDS ORDERED: SODIUM CHLORIDE 0.9% 250 ML IV PRN (18:32)
[2017-01-16] MEDS ORDERED: GLUCAGON 1 MG VIAL IM PRN (18:32)
[2017-01-16] MEDS ORDERED: diphenhydrAMINE 50 MG/1 ML VIAL IV PRN (18:32)
[2017-01-16] MEDS ORDERED: ONDANSETRON 4 MG/2 ML VIAL IV PRN (18:32)
[2017-01-16] MEDS ORDERED: DEXTROSE 50% 25 GM/50 ML VIAL IV PRN (18:32)
[2017-01-16] MEDS ORDERED: FUROSEMIDE 40 MG/4 ML VIAL IV ONE (18:32)
--- NOTE | 2017-01-16 18:35 | Hospitalist History & Physical ---
Assessment and Plan (1) GI bleed Status: Acute Assessment and plan: Admit to ICU. Pt. h&h 4.9/15.3. Cardiac monitoring. Transfuse 2 units of blood. Post infusion h&h. Gentle IVF hydration at 50 ml/hr. Clear liquid diet. PT/INR. Hold blood thinners. Consult GI for rec. Current Visit: Yes (2) Diabetes Status: Chronic Assessment and plan: Accuchecks achs. Initiate SSI. Hbg A1c in am. Current Visit: No Qualifiers: Diabetes mellitus type: type 2 (3) Congestive heart failure Status: Acute Assessment and plan: Stat BNP. Chest XR clear. Lasix in between units of blood. Start Lasix 20 mg po bid in am. Current Visit: No History of Present Illness Chief complaint: shortness of breath History of present illness: Mr. Jaramillo is a 81 year old white male with a history of recent CHF diagnosis, hypertension, CVA, TIA, diabetes, hypothyroidism, asbestosis, celiac disease, Crohn's disease, back and neck problems that presented to the ED with complaints of shortness of breath. Patient is accompanied by and brother-in -law. patient states that he has been experiencing dyspnea for 1 week and that it has progressively worsened to dyspnea on exertion. Patient states that he was completing yard work this morning and had difficulty breathing. Patient denies fever, diaphoresis, cough, or chest pain. Patient also reports melena for 1 week. Pt. denies noticing any candis bleeding, blood in urine, or nosebleeds. Pt. does report having a colonoscopy performed 1 yr ago where ulcers where noted. On arrival to ED, pt was found to have an h&h of 4.9 and 15.3. CXR was clear. Pt. case has been discussed with Dr. Abdalla. Pt will be admitted to the hospitalist service and placed in the ICU for closer monitoring. Home Medications Medication Instructions Recorded Confirmed Type Ferrous Sulfate 1 tablet PO BID 11/21/15 01/16/17 History Pramipexole Di-HCl [Pramipexole 1 mg PO BID 11/21/15 01/16/17 History Dihydrochloride] Apixaban [Eliquis] 2.5 mg PO QAM 11/05/16 01/16/17 History Insulin Lispro [HumaLOG] 1 unit SUBCUT DAILY 11/05/16 01/16/17 History Memantine HCl [Namenda XR] 28 mg PO QPM 11/05/16 01/16/17 History Potassium Chloride 10 meq PO QPM 11/05/16 01/16/17 History Insulin Glargine [Lantus] 12 unit SUBCUT DAILY #0 11/07/16 01/16/17 Rx Atorvastatin [Lipitor] 40 mg PO BEDTIME 01/16/17 01/16/17 History Carbidopa/Levodopa [Carbidopa-Levo 1 each PO DAILY 01/16/17 01/16/17 History ER 50-200 Tab] Carvedilol [Coreg] 3.125 mg PO BID 01/16/17 01/16/17 History Furosemide Tab [Lasix Tab] 20 mg PO DAILY 01/16/17 01/16/17 History Hydrocodone/Acetaminophen 1 each PO DAILY PRN 01/16/17 01/16/17 History [Hydrocodon-Acetaminophn 10-325] Levothyroxine Tab [Synthroid Tab] 50 mcg PO DAILY 01/16/17 01/16/17 History Allergies Allergy/AdvReac Type Severity Reaction Status Date / Time aspirin AdvReac Nausea Verified 11/21/15 11:45 Medical,Surgical,& Family Hx - Medical History Cardio: History of: CAD, Hypertension Neurology: History of: Cerebrovascular Accident, TIA Endocrine: History of: Diabetes Mellitus (IDDM), Thyroid Disorder (Hypothyroid) Respiratory: History of: Respiratory Problems (Asbestosis) Gastrointestinal: History of: Crohn's Disease, GI Problems (Celiac Disease) Musculoskeletal: History of: Back/Neck Problems - Surgical History HEENT Surgeries: Surgical HX of: Eye Surgery - Family History Family History: Reports;: Family Heart Disease (father) Denies;: Family Cancer, Family Diabetes, Family Hypertension - Social History Smoking Status: Former smoker Frequency of Alcohol Use: None Type of Drug Use: None Marital Status: Lives With:: Spouse Functional capacity: uses cane/walker - Constitutional Constitutional: Present: chills, weakness. Absent: fever(s) - EENT Eyes: Present: loss of vision, requires corrective lense Ears: Present: decreased hearing (wears hearing aid) - Cardiovascular Cardiovascular: Present: dyspnea on exertion, edema. Absent: chest pain at rest - Respiratory Respiratory: Present: dyspnea on exertion. Absent: cough - Gastrointestinal Gastrointestinal: Present: melena, nausea. Absent: abdominal pain, vomiting - Genitourinary Genitourinary: Absent: difficulty urinating, hematuria - Musculoskeletal Musculoskeletal: Present: muscle weakness - Neurological Neurological: Absent: confusion, dizziness - Psychiatric Psychiatric: Absent: anxiety, depression - Endocrine Endocrine: Present: cold intolerance - Hematologic/Lymphatic Hematologic/Lymphatic: Present: easy bruising Exam - Constitutional Vitals: Period Temp Pulse Resp BP Sys/Morley Pulse Ox Last 24 Hr 97.7 F-97.7 F 86-115 16-22 90-93/45-60 97-99 General appearance: normal weight, mild distress - Head Head exam: Present: normal inspection, normocephalic - Eye Eye exam: Present: EOMI. Absent: scleral icterus Pupils: Present: MARY - Neck Neck exam: Present: normal inspection - Respiratory Respiratory exam: Present: clear to auscultation bilaterally. Absent: wheezes - Cardiovascular Cardiovascular exam: Present: regular rate and rhythm - GI/Abdominal GI/Abdominal exam: Present: normal bowel sounds, soft. Absent: tenderness - Extremities Exam Extremities exam: Present: normal capillary refill, full ROM, edema - Neurological Exam Neurological exam: Present: alert, oriented X3 - Psychiatric Psychiatric exam: Present: normal affect, normal mood - Skin Skin exam: Present: normal color, warm, dry Results - Labs CBC & BMP: 01/16/17 15:58 01/16/17 15:56 Lab Results: I have reviewed the past 24 hour labs
[2017-01-16] MEDS ORDERED: PANTOPRAZOLE INJ 80 MG in SODIUM CHLORIDE 0.9% 100 ML IV ONE (18:52)
[2017-01-16] MEDS: SODIUM CHLORIDE 0.9% 1,000 ML IV SCH (18:53)
[2017-01-16 19:10] LABS: Hematocrit 15.6 VOL% (42.0-52.0); Hemoglobin 5.1 GM/DL (14.0-18.0)
[2017-01-16] MEDS: ATORVASTATIN 40 MG TABLET PO SCH (20:42)
[2017-01-16] MEDS: PRAMIPEXOLE 1 MG TABLET PO SCH (20:42)
[2017-01-16] MEDS: PANTOPRAZOLE INJ 200 MG in SODIUM CHLORIDE 0.9% 250 ML IV SCH (21:49)
[2017-01-16] MEDS: INSULIN LISPRO 100 UNIT/ML SUBCUT SCH (21:53)
[2017-01-16 23:18] LABS: Apearance,Urine CLEAR (Clear); Bilirubin,Urine Negative (Negative); Blood, Urine Negative (Negative); Glucose,Urine (UA) Negative (Negative); Ketones,Urine Negative (Negative); Nitrite,Urine Negative (Negative); Protein,Urine Negative; RBC,Urine <1 /HPF (0-4); Urine Color Straw (Yellow); Urine Specific Gravity 1.006 (1.001-1.035); Urine Urobilinogen < 2.0 EU/DL (0.2-1.0); WBC,Urine <1 /HPF (0-6)
[2017-01-17 02:06] LABS: Hematocrit 20.4 VOL% (42.0-52.0); Hemoglobin 6.8 GM/DL (14.0-18.0)
[2017-01-17 05:23] LABS: Basophils % 0.4 % (0.0-0.8); Eosinophils # 0.1 10*3/uL (0.0-0.87); Hematocrit 20.8 VOL% (42.0-52.0); Hemoglobin 6.8 GM/DL (14.0-18.0); Immature Granulocytes % 1.3 %; Immature Granulocytes Absolute 0.12 #; Lymphocytes # 1.3 10*3/uL (1.4-4.0); Lymphocytes % 14.6 % (21.2-54.2); Mean Corpuscular HGB Conc 32.7 GM/DL (32-36); Mean Corpuscular Hemoglobin 32 PG (27-34); Mean Corpuscular Volume 98.6 FL (87-102); Mean Platelet Volume 11.3 FL (9.6-12.0); Monocytes # 0.6 10*3/uL (0.11-0.8); Monocytes % 6.1 % (1.7-12.7); Neutrophils # 7.1 10*3/uL (1.4-7.4); Neutrophils % 76.6 % (38.7-73.9); Platelet Count 284 T/CUMM (130-400); Red Blood Count 2.11 MC/CUMM (3.8-5.5); Red Cell Distribution Width 17.2 % (9.3-17.3); White Blood Count 9.2 T/CUMM (4-12)
[2017-01-17 05:32] LABS: PT Patient Result 10.5 SECS
[2017-01-17 06:05] LABS: Albumin 2.1 G/DL (3.4-5.0); Bilirubin,Total 0.6 MG/DL (0.2-1.0); Calcium 8.1 MG/DL (8.5-10.1); Magnesium 2.1 MG/DL (1.8-2.4); Osmolality,Calculated 294.4 MOS/KG (273-304); Potassium 4.1 MMOL/L (3.5-5.1); Risk Ratio 1.96; Thyroid Stimulating Hormone 9.62 uIU/ml (0.358-3.74); Total Protein 4.9 G/DL (6.4-8.3)
[2017-01-17 08:02] LABS: Hematocrit 19.5 VOL% (42.0-52.0); Hemoglobin 6.5 GM/DL (14.0-18.0)
[2017-01-17] MEDS: FUROSEMIDE 20 MG TABLET PO SCH ×2 (08:12→16:07)
[2017-01-17] MEDS: LEVOTHYROXINE 50 MCG TABLET PO SCH (08:12)
[2017-01-17] MEDS: PRAMIPEXOLE 1 MG TABLET PO SCH ×2 (08:12→20:49)
[2017-01-17] MEDS: INSULIN LISPRO 100 UNIT/ML SUBCUT SCH ×4 (08:12→20:49)
[2017-01-17] MEDS ORDERED: ACETAMINOPHEN 325 MG TABLET PO PRN (08:42)
[2017-01-17] MEDS ORDERED: FUROSEMIDE 40 MG/4 ML VIAL IV ONE (08:56)
[2017-01-17] MEDS ORDERED: PANTOPRAZOLE 40 MG TABLET PO SCH (09:00)
[2017-01-17] MEDS ORDERED: MEMANTINE 10 MG TABLET PO SCH (09:00)
--- NOTE | 2017-01-17 10:53 | Gastrointestinal Consult Note ---
Assessment and Plan - Time spent with patient Time spent with patient: Greater than 30 minutes (1) GI bleed Status: Acute Current Visit: Yes (2) Acute post-hemorrhagic anemia Status: Acute Current Visit: Yes (3) Melena Status: Acute Current Visit: Yes (4) Celiac disease Status: Chronic Current Visit: No (5) Elevated liver enzymes Status: Acute Assessment and plan: PLEASE NOTE -- automatic citation of patient information is unavoidable in this electronic note. I have made a reasonable effort to review the information cited , but it is not a part of my evaluation, impression, or recommendation unless specifically discussed in the dictated text that follows. As well, voice recognition software was used in the creation of this clinical note. Reasonable effort was made to identify and correct gross errors. Despite proofreading, errors in tool and die maker/designer may be present, including nonsense verbiage at times. If you encounter such an error, please contact me at for discussion and correction. -- Dr. Gaines Chief complaint/Consult Question: Melena with severe anemia and suspected GI bleed Consult requested by: CCU team hospitalistKRISH History of present illness: This is a new patient, a 81-year-old man previously seen by Dr. 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 fib, COPD, on daily Eliquis presenting with 4-6 weeks of progressive dyspnea with exertion, and 1 week of melenic stools. Patient states melena started 7 days ago, single bowel movement per day, no increased frequency or urgency. This is not associated with any abdominal pain. Was associated with leg cramping. Patient states otherwise he has been feeling very well, but as soon as he starts to do yard work, walk to the house, climb up a hill, he has to stop to catch his breath. He is not endorsing other fevers, chills, wheezing. Due to his significant back pain and leg cramping, he has been using his pain medications much more frequently, including naproxen as well as Advil, reporting he is taking 2 Advil every 3 hours for the last month. States that he has taken over 300 Advil in the last 3 months, as he keeps very detailed records. He reports last EGD 1 month ago was normal, last colonoscopy 1 year ago also normal. These reports are not available to me today. Initial hemoglobin on presentation was 4.9, has been given 2 units of packed red blood cells which increases hemoglobin to 6.5, and improved his tachycardia. He is receiving 2 more units at this time, is on a Protonix drip, and NSAIDs have been held as well as his Eliquis. Lasix has been continued between transfusions. Patient states he is consistently maintaining his gluten-free diet even while eating out, prior reported weight loss from 155 down to 125 pounds, states he is now regained to 132 pounds. Diarrhea has resolved. GI review of systems included: heartburn, regurgitation, early satiety, dysphagia, odynophagia, abdominal pain, nausea, vomiting, hematemesis, weight loss, weight gain, fever, chills, fatigue, decreased appetite, diarrhea, constipation, hematochezia, melena, bloating, malodorous flatus, anal pain, or NSAID use, and was negative except as noted above. REVIEW OF SYSTEMS: Complete other review of systems negative except as noted in the HPI significant back pain, leg cramps. States that leg cramps do not occur with exercise, but occur at rest and while attempting to sleep. Magnesium and potassium have been normal since admission. Outpatient medications: Personally reviewed, significant for naproxen twice daily, high-dose Advil as reported above, Eliquis Inpatient medications: Personally reviewed Protonix IV drip Mirapex Normal saline infusion, slow Tylenol, Lipitor, Sinemet, Benadryl as needed, Lasix with transfusion, insulin, Synthroid, Namenda, Zofran as needed Past Medical History: Personally reviewed Celiac sprue Colitis with terminal ileitis, noted February and March 2016, presumed acute , noted could not rule out Crohn's at that time Coronary artery disease Hypertension Congestive heart failure, EF 30% Chronic A. fib COPD Prior candidal esophagitis Parkinson's disease? Social history: Prior tobacco. Family history: No GI related disease or malignancy reported PHYSICAL EXAMINATION: CONSTITUTIONAL: Vital signs reviewed as documented above. In no acute distress. Nontoxic-appearing. EYES: Anicteric conjunctiva. Extra-ocular movements are intact and symmetric. Conjunctival pallor. EARS: Able to hear speech at conversational volume level, no external trauma/ masses. MOUTH: No oral/mouth lesions or ulcers. NECK: No masses or crepitus. Thyroid is of normal size and symmetric. HEART: Regular rate, regular rhythm, mildly tachycardic at 95 bpm, no murmurs. No peripheral edema. No hair on entire length of both legs. LUNGS: Patient with air movement in all lung lovett, increased expiratory phase bilaterally, right middle and lower lung field with persistent crackles that improved but do not resolve with repeated inspiration. No increased work of breathing or accessory muscle use. GI/ABDOMEN: Nonobese abdomen, soft, nontender to deep palpation, no rebound tenderness, nondistended, no rigidity. No palpable mass. No appreciable hepatosplenomegaly. SKIN: Significant pallor. No rash on face, arms, or hands. No palpable lesions MUSCULOSKELETAL: Muscle tone appears normal without any abnormal movements. PSYCH: Normal affect. Alert and oriented to person, place, and time. Laboratory: Personally reviewed Significant for admission labs of hemoglobin 4.9, corrected to 6. 2:05 units of blood Creatinine 1.4 improved to 1.1 after blood AST 38, ALT 56, alk phos 165, total protein 5.4, albumin 2.3 BUN 33 Updated CMP from today AST 33, ALT 47, alk phos 150, total protein 4.9, albumin 2.1, total bilirubin 0.6, BUN 37 B12 586, folate greater than 24 Troponin 0.037, CK-MB 4.9, BNP 458 Radiology: Personally reviewed reports and images Chest x-ray consistent with chronic lung changes, no acute process Assessments: #Acute anemia secondary to hemorrhage #Melena #Gastrointestinal hemorrhage: Patient's current acute symptoms are most likely secondary to severe anemia from acute GI blood loss. Melena for the last 1 week , but significant dyspnea on exertion for the last month suggest the patient may have had slow undetectable occult GI bleeding, that transition to overt GI bleeding. This is most likely secondary to NSAID related ulcer disease, which could be occurring anywhere in this patient's GI tract, but most likely in the upper GI tract as the BUN to creatinine ratio significantly elevated. Alternative diagnoses in a patient on anticoagulation include AVM, malignancy, persistent enteritis, the latter of which is unlikely due to complete lack of abdominal pain. #Elevated liver associated enzymes. Mixed pattern. Improved slightly since admission labs. Initially suspect most likely due to significant drop in hemoglobin. Patient reporting significant use of his [id number] hydrocodone and [place], both which have acetaminophen in them, although patient not displaying evidence of liver failure or levels high enough for liver toxicity. #Celiac disease: Appears stable at this time with patient reporting slight white gain, gluten-free diet adherence, resolution of prior diarrhea. #Recent colitis with terminal ileitis, approximately February or March 2016 #Hypothyroidism: Patient already on Synthroid. Dose may be too low for the patient, versus secondary to response to something happening more chronically related to his severe anemia. #Other specified counseling -- The patient was seen for greater than 30 minutes. The patient was counseled for greater than 50% of this time regarding differential diagnosis, likely diagnosis, diagnostic and therapeutic alternatives, risks/benefits/alternatives of medications and procedures, and plan of care generally. The patient expressed understanding and wishes to proceed. Recommendations: -Stop all NSAIDs for life. Patient counseled at bedside extensively today. Will likely need this in writing when he leaves the hospital. -Continue Protonix drip -continue to hold eliquis in anticipation of EGD wednesday -Continue IV fluid resuscitation and transfusion to goal hemoglobin 8, if still symptomatic in a patient with significant cardiac disease can consider transfusing to goal 10. -Plan for EGD tomorrow, Wednesday morning with Dr. Persaud, primary gun stock checker -Continue clear liquid diet for now, n.p.o. at midnight -After EGD if diet is restarted please ensure it is a celiac diet. -Defer management of hypothyroidism to primary hospitalist service, as this can contribute to dyspnea on exertion as well as ability for bone marrow to respond appropriately to anemia Ensure patient does not take more than 3000 mg of Tylenol and 24 hour period for life, as patient reporting high regular usage of his narcotic/acetaminophen medications. No clear indication to assess acetaminophen level at this time. Zarina Gaines MD, MPH STAFF MEDICAL ACCOUNTING CLERK Current Visit: Yes History of Present Illness History of present illness: Mr. Jaramillo is a 81 year old male Home Medications Medication Instructions Recorded Confirmed Type Ferrous Sulfate 1 tablet PO BID 11/21/15 01/16/17 History Pramipexole Di-HCl [Pramipexole 1 mg PO BID 11/21/15 01/16/17 History Dihydrochloride] Apixaban [Eliquis] 2.5 mg PO QAM 11/05/16 01/16/17 History Insulin Lispro [HumaLOG] 1 unit SUBCUT DAILY 11/05/16 01/16/17 History Memantine HCl [Namenda XR] 28 mg PO QPM 11/05/16 01/16/17 History Potassium Chloride 10 meq PO QPM 11/05/16 01/16/17 History Insulin Glargine [Lantus] 12 unit SUBCUT DAILY #0 11/07/16 01/16/17 Rx Atorvastatin [Lipitor] 40 mg PO BEDTIME 01/16/17 01/16/17 History Carbidopa/Levodopa [Carbidopa-Levo 1 each PO DAILY 01/16/17 01/16/17 History ER 50-200 Tab] Carvedilol [Coreg] 3.125 mg PO BID 01/16/17 01/16/17 History Furosemide Tab [Lasix Tab] 20 mg PO DAILY 01/16/17 01/16/17 History Hydrocodone/Acetaminophen 1 each PO DAILY PRN 01/16/17 01/16/17 History [Hydrocodon-Acetaminophn 10-325] Levothyroxine Tab [Synthroid Tab] 50 mcg PO DAILY 01/16/17 01/16/17 History Allergies Allergy/AdvReac Type Severity Reaction Status Date / Time aspirin AdvReac Nausea Verified 11/21/15 11:45 Medical,Surgical,& Family Hx - Medical History Cardio: History of: Cardiac Dysrhythmia, CHF, CAD, Hypertension Neurology: History of: Cerebrovascular Accident, TIA HEENT: History of: Ear Problem (WIYOT), Eye Problem (about blind) Endocrine: History of: Diabetes Mellitus (IDDM), Thyroid Disorder (Hypothyroid) Respiratory: History of: Respiratory Problems (Asbestosis) Gastrointestinal: History of: Crohn's Disease, GI Problems (Celiac Disease) Musculoskeletal: History of: Back/Neck Problems, Osteoporosis Hematology: History of: Anemia No history of: Blood Disorders - Surgical History Cardiac Surgeries: Patient Denies: Cardiac Catheterization Thoracic Surgeries: Patient denies;: Organ Transplant HEENT Surgeries: Surgical HX of: Eye Surgery - Family History Family History: Reports;: Family Heart Disease (father) Denies;: Family Cancer, Family Diabetes, Family Hematology, Family Hypertension, Family Psychiatric Problems, Family Stroke - Social History Smoking Status: Former smoker Frequency of Alcohol Use: None Type of Drug Use: None Exam - Constitutional Vitals: Period Temp Pulse Resp BP Sys/Molrey Pulse Ox Last 24 Hr 96.8 F-98 F 78-115 12-23 85-122/43-67 97-100 Results - Labs CBC & BMP: 01/17/17 07:53 01/17/17 04:39
[2017-01-17] MEDS: CARBIDOPA/LEVODOPA CR 50-200 MG TABLET PO SCH (11:50)
--- NOTE | 2017-01-17 12:16 | Hospitalist Progress Note ---
Assessment and Plan (1) Acute post-hemorrhagic anemia Status: Acute Assessment and plan: due to GI bleed Plan Continue to transfuse with packed cells, goal is to bring Hb up to 8.0. GI wants to do an EGD in am Current Visit: Yes (2) Lower back pain Status: Acute Assessment and plan: with leg spasm. Plan will get CT lumbosacral spine -start tylenol and flexeril prn PT consult Current Visit: Yes (3) Diabetes Status: Chronic Assessment and plan: resume Lantus after EGD tomorrow HbA1c level continue current regime Current Visit: No Qualifiers: Diabetes mellitus type: type 2 (4) Congestive heart failure Status: Acute Assessment and plan: Give Lasix in between transfusions Current Visit: No (5) Parkinson disease Status: Acute Assessment and plan: continue with home meds Current Visit: Yes (6) Hypothyroidism Status: Acute Assessment and plan: will get TSH level, continue with supplements. Current Visit: Yes Hospitalist: Subjective Interval history: 81yr old with multiple medical issues admitted with a GI bleed. He is receiving transfusion with packed cells. GI wants to do an EGD on Wednesday.Patient complains of lower back pain and leg spasm. Exam - Constitutional Vitals: Period Temp Pulse Resp BP Sys/Morley Pulse Ox Last 24 Hr 96.8 F-98 F 78-115 12-23 85-122/43-67 97-100 General appearance: no acute distress - Head Head exam: Present: normal inspection - Neck Neck exam: Present: normal inspection - Respiratory Respiratory exam: Present: clear to auscultation bilaterally - Cardiovascular Cardiovascular exam: Present: regular rate and rhythm - GI/Abdominal GI/Abdominal exam: Present: normal bowel sounds - Extremities Exam Extremities exam: Present: normal inspection - Neurological Exam Neurological exam: Present: alert, oriented X3 Results - Labs CBC & BMP: 01/17/17 07:53 01/17/17 04:39 Lab Results: I have reviewed the past 24 hour labs
[2017-01-17 12:54] LABS: Free T4 (Free Thyroxine) 0.75 NG/DL (0.76-1.46)
[2017-01-17] MEDS: CAPSAICIN 0.025% CREAM 60 GM TUBE TOP PRN ×2 (13:07→20:49)
[2017-01-17] MEDS: NAMENDA XR 28 MG PO SCH (14:40)
--- NOTE | 2017-01-17 14:45 | CT Report ---
CT lumbar spine wo con Indication: Back pain Comparison: CT abdomen and pelvis ON March 2016 Technique: Axial CT imaging of the lumbar spine is performed without contrast. Computer reformatting is viewed in the sagittal and coronal planes. Findings: Compression fractures are present at multiple levels, 50% anterior endplate and central superior endplate of L1, 20%. This was not present on the previous CT. The remaining fractures were present at least to some degree on the previous study L2, 40% with central endplate depressions of L3, 50% L4 and 30% L5. Age is indeterminate. The L1 compression fracture may be more acute and there is mild retrolisthesis with mild central canal stenosis. Alignment of the spine is within normal limits. Vertebral body heights are normal. Bladder is distended. Small bilateral pleural effusions are present. No other abnormality is demonstrated. Impression: Multilevel compression fractures as described above. The L1 compression fracture was not present on previous exam. Severe bladder distention. This CT exam was performed using one or more the following dose reduction techniques: Automated exposure control, adjustment of the MA and/or KV according to patient size, or use of iterative reconstruction technique. PROCEDURE INTERPRETED AT [facility] DEPARTMENT OF RADIOLOGY Final Report Signed by: Dr. Cayden Delaney
[2017-01-17] MEDS: CYCLOBENZAPRINE 10 MG TABLET PO PRN ×2 (14:49→20:49)
[2017-01-17 16:16] LABS: Hematocrit 26.5 VOL% (42.0-52.0)
[2017-01-17 16:20] LABS: Hemoglobin 9.1 GM/DL (14.0-18.0)
[2017-01-17] MEDS: SODIUM CHLORIDE 0.9% 1,000 ML IV SCH ×2 (19:33→23:59)
[2017-01-17] MEDS: ATORVASTATIN 40 MG TABLET PO SCH (20:49)
[2017-01-17] MEDS: PANTOPRAZOLE INJ 200 MG in SODIUM CHLORIDE 0.9% 250 ML IV SCH ×2 (20:49→22:36)
[2017-01-18 05:56] LABS: Basophils # 0.1 10*3/uL (0.0-0.2); Basophils % 0.8 % (0.0-0.8); Eosinophils # 0.2 10*3/uL (0.0-0.87); Eosinophils % 2.3 % (0.00-10.9); Hematocrit 26.5 VOL% (42.0-52.0); Immature Granulocytes % 0.3 %; Immature Granulocytes Absolute 0.03 #; Lymphocytes # 1.7 10*3/uL (1.4-4.0); Lymphocytes % 18.7 % (21.2-54.2); Mean Corpuscular Hemoglobin 32 PG (27-34); Mean Corpuscular Volume 94.3 FL (87-102); Mean Platelet Volume 10.7 FL (9.6-12.0); Monocytes # 0.7 10*3/uL (0.11-0.8); Monocytes % 7.6 % (1.7-12.7); Neutrophils # 6.3 10*3/uL (1.4-7.4); Neutrophils % 70.3 % (38.7-73.9); Platelet Count 273 T/CUMM (130-400); Red Blood Count 2.81 MC/CUMM (3.8-5.5); Red Cell Distribution Width 17.8 % (9.3-17.3)
[2017-01-18 06:09] LABS: PT Patient Result 10.4 SECS
[2017-01-18 06:34] LABS: Albumin 2.2 G/DL (3.4-5.0); Bilirubin,Total 1.2 MG/DL (0.2-1.0); Osmolality,Calculated 286.7 MOS/KG (273-304); Potassium 3.8 MMOL/L (3.5-5.1); Total Protein 4.9 G/DL (6.4-8.3)
[2017-01-18] MEDS: INSULIN LISPRO 100 UNIT/ML SUBCUT SCH ×4 (08:47→21:06)
--- NOTE | 2017-01-18 10:27 | History and Physical Update ---
History and Physical Update - Physical Exam Mental Status: alert and oriented Heart: regular rate and rhythm Lung: clear to auscultation Abdomen: within normal limits Vitals: within normal limits
--- NOTE | 2017-01-18 10:30 | Operative Note ---
Date of procedure: 01/18/17 Pre-op diagnosis: Melena and nonsteroidal abuse Procedure: EGD 81-year-old white male with melena and nonsteroidal use on chronic anticoagulation now for EGD. Informed consent was obtained the patient He was sedated with MAC anesthesia per anesthesia protocol. Patient placed left lateral decubitus position the Olympus flexible video upper endoscope was inserted oral cavity under direct vision the esophagus intubated. Esophagus: Normal esophageal mucosa throughout no varices no Mosqueda's no esophageal stricture seen. Small hiatal hernia. Stomach-normal insufflation blood is present in the stomach there is no active bleeding. Several large ulcers are seen including a 2 cm pyloric channel ulceration and 2 other lesser curve ulcers with no visible vessels. Patient is on chronic anticoagulation no biopsies were taken. Pylorus pyloric channel ulcer as above widely patent Duodenum-normal for the bulb duodenum to the third portion of duodenum. The procedure was terminated placed our procedure well his discharge recovery in good condition. Postop diagnosis: 1. Acute peptic ulcer disease likely secondary to nonsteroidals complicated by anticoagulants. PPI treatment. Will need to avoid nonsteroidals as discussed. Continue to monitor H&H and transfuse as needed. With these findings I would not anticipate repeat colonoscopy to be needed. Anesthesia: MAC Surgeon / Physician: Amrit Persaud Estimated blood loss: none Specimens: none sent Condition: stable Disposition: post procedure unit Results - Labs CBC & BMP: 01/18/17 05:43 01/18/17 05:43 Discharge Plan - Discharge Medications No Action Pramipexole Di-HCl [Pramipexole Dihydrochloride] 1 mg PO BID Ferrous Sulfate 1 tablet PO BID Potassium Chloride 10 meq PO QPM Insulin Lispro [HumaLOG] 1 unit SUBCUT DAILY Memantine HCl [Namenda XR] 28 mg PO QPM Insulin Glargine [Lantus] 12 unit SUBCUT DAILY #0 Levothyroxine Tab [Synthroid Tab] 50 mcg PO DAILY Furosemide Tab [Lasix Tab] 20 mg PO DAILY Carvedilol [Coreg] 3.125 mg PO BID Apixaban [Eliquis] 2.5 mg PO QAM Hydrocodone/Acetaminophen [Hydrocodon-Acetaminophn 10-325] 1 each PO DAILY PRN PRN Reason: Pain Carbidopa/Levodopa [Carbidopa-Levo ER 50-200 Tab] 1 each PO DAILY Atorvastatin [Lipitor] 40 mg PO BEDTIME - Follow Up or Referral - Forms/Instructions Instructions: Gastrointestinal Bleeding (GEN), Anemia (GEN)
--- NOTE | 2017-01-18 10:40 | Anesthesia Post-Op ---
Anesthesia Post OP - Post Ansesthetic Evaluation Patient seen in post op: Yes Resp: within normal limits CV: within normal limits Mental: within normal limits Temp: within normal limits [id number]-Ad-[id number]: within normal limits Nausea and Vomiting: within normal limits Pain: within normal limits
--- NOTE | 2017-01-18 11:09 | Hospitalist Progress Note ---
Assessment and Plan (1) GI bleed Status: Acute Assessment and plan: EGD today Current Visit: Yes (2) Acute post-hemorrhagic anemia Status: Acute Assessment and plan: s/p 2 units prbc Current Visit: Yes (3) Lower back pain Status: Acute Assessment and plan: work up for metastatic dz vs osteoporosis/ osteopenia. Current Visit: Yes Qualifiers: Chronicity: acute Sciatica presence: without sciatica (4) Hypothyroidism Status: Chronic Current Visit: Yes Qualifiers: Hypothyroidism type: acquired Qualified Code(s): E03.9 - Hypothyroidism, unspecified Hospitalist: Subjective Interval history: Patient seen and examined. No acute events overnight. Case discussed with nursing staff. Labs reviewed. Complains of continued back pain. Going for EGD this morning. Exam - Constitutional Vitals: Period Temp Pulse Resp BP Sys/[place] Pulse Ox Last 24 Hr 96.7 F-97.4 F 75-107 11-22 66-124/40-100 93-100 Exam: Constitutional System: No distress. No tremulousness. Head: Normocephalic, atraumatic. Ears, Nose and Throat System: No pain or tenderness. No epistaxis or discharge Eyes System: Pupils equal, round, and reactive. Extraocular muscles intact. Neck: Supple, without adenopathy, No jugular venous distention. Respiratory System: Chest clear to auscultation. Cardiovascular System: Heart with regular rate and rhythm. No murmur. GI System: Abdomen soft, nontender. Normo active bowel sounds present. Musculoskeletal System: limbs with no pedal edema. Full distal pulses. Neurological System: No discernable sensory deficit. No aphasia Psychiatric System: Conversation is rational Results - Labs CBC & BMP: 01/18/17 05:43 01/18/17 05:43 Lab Results: I have reviewed the past 24 hour labs Specialty Discharge - Follow Up or Referrals
[2017-01-18] MEDS: PRAMIPEXOLE 1 MG TABLET PO SCH ×2 (12:29→21:05)
[2017-01-18] MEDS: NAMENDA XR 28 MG PO SCH (12:29)
[2017-01-18] MEDS: FUROSEMIDE 20 MG TABLET PO SCH ×2 (12:29→16:15)
[2017-01-18] MEDS: CARBIDOPA/LEVODOPA CR 50-200 MG TABLET PO SCH (12:30)
[2017-01-18] MEDS: LEVOTHYROXINE 50 MCG TABLET PO SCH (12:30)
--- NOTE | 2017-01-18 14:27 | Pain Management Consult Note ---
Assessment and Plan (1) Cramping of feet Problem details: Cramping many years feet and calves Status: Acute Assessment and plan: 01/18/2017. The patient is very pleasant 81-year-old male patient of the [facility]. He reports cramping in his calves and feet, and wants something done about this during this visit. He states that he has had this for decades. Will try baclofen at nighttime. He has tried multiple medicines. He is on magnesium at home. He is an active patient at the [facility]. y Current Visit: Yes (2) Lumbar compression fracture Problem details: Moderate back pain with multiple lumbar compression fractures Status: Acute Assessment and plan: The patient's CT scan of abdomen and pelvis demonstrates lumbar compression fractures L1-L5. Most of these appear old. L1 probably more recent. He does report having multiple falls over the past year. Workup of this could be considered if more painful however he has very little back pain at this time. He is able to transition from a sitting lying and standing position without difficulty. At this point no intervention are further workup indicated. Again if his back becomes more symptomatic then MRI would be helpful, however he is mostly pain-free in the back and moves well without back pain. Current Visit: Yes Qualifiers: Encounter type: initial encounter Fracture type: closed Qualified Code(s) : S32.000A - Wedge compression fracture of unspecified lumbar vertebra, initial encounter for closed fracture History of Present Illness Chief complaint: Cramping in his feet and legs all of his life History of present illness: Mr. Jaramillo is a 81 year old male who complains of cramping in his feet and lower extremities "all my life". This occurs primarily at nighttime. He states he wakes up in pounds is calfs with his fists. The pain is at cramping discomfort. He also complains of some back pain but not severe. Home Medications Medication Instructions Recorded Confirmed Type Ferrous Sulfate 1 tablet PO BID 11/21/15 01/16/17 History Pramipexole Di-HCl [Pramipexole 1 mg PO BID 11/21/15 01/16/17 History Dihydrochloride] Apixaban [Eliquis] 2.5 mg PO QAM 11/05/16 01/16/17 History Insulin Lispro [HumaLOG] 1 unit SUBCUT DAILY 11/05/16 01/16/17 History Memantine HCl [Namenda XR] 28 mg PO QPM 11/05/16 01/16/17 History Potassium Chloride 10 meq PO QPM 11/05/16 01/16/17 History Insulin Glargine [Lantus] 12 unit SUBCUT DAILY #0 11/07/16 01/16/17 Rx Atorvastatin [Lipitor] 40 mg PO BEDTIME 01/16/17 01/16/17 History Carbidopa/Levodopa [Carbidopa-Levo 1 each PO DAILY 01/16/17 01/16/17 History ER 50-200 Tab] Carvedilol [Coreg] 3.125 mg PO BID 01/16/17 01/16/17 History Furosemide Tab [Lasix Tab] 20 mg PO DAILY 01/16/17 01/16/17 History Hydrocodone/Acetaminophen 1 each PO DAILY PRN 01/16/17 01/16/17 History [Hydrocodon-Acetaminophn 10-325] Levothyroxine Tab [Synthroid Tab] 50 mcg PO DAILY 01/16/17 01/16/17 History Allergies Allergy/AdvReac Type Severity Reaction Status Date / Time aspirin AdvReac Nausea Verified 11/21/15 11:45 Medical,Surgical,& Family Hx - Medical History Cardio: History of: Cardiac Dysrhythmia, CHF, CAD, Hypertension Neurology: History of: Cerebrovascular Accident, TIA No history of: Seizures HEENT: History of: Ear Problem ([place] Eye Problem (about blind) Endocrine: History of: Diabetes Mellitus (IDDM), Thyroid Disorder (Hypothyroid) Respiratory: History of: Respiratory Problems (Asbestosis) Gastrointestinal: History of: Crohn's Disease, GI Problems (Celiac Disease) Musculoskeletal: History of: Back/Neck Problems, Osteoporosis Hematology: History of: Anemia No history of: Blood Disorders - Surgical History Cardiac Surgeries: Patient Denies: Cardiac Catheterization Thoracic Surgeries: Patient denies;: Organ Transplant HEENT Surgeries: Surgical HX of: Eye Surgery - Family History Family History: Reports;: Family Heart Disease (father) Denies;: Family Cancer, Family Diabetes, Family Hematology, Family Hypertension, Family Psychiatric Problems, Family Stroke - Social History Smoking Status: Former smoker Frequency of Alcohol Use: None Type of Drug Use: None - Constitutional Constitutional: Present: fatigue - Cardiovascular Cardiovascular: Present: dyspnea on exertion - Musculoskeletal Musculoskeletal: Present: back pain, muscle cramps Exam - Constitutional Vitals: Period Temp Pulse Resp BP Sys/Morley Pulse Ox Last 24 Hr 97 F-97.4 F 75-99 11-25 66-124/40-100 95-100 General appearance: normal weight, no acute distress - Eye Eye exam: Present: EOMI - Respiratory Respiratory exam: Present: clear to auscultation bilaterally - Cardiovascular Cardiovascular exam: Present: RRR, systolic murmur - GI/Abdominal GI/Abdominal exam: Present: normal bowel sounds - Back Exam Back exam: Present: vertebral tenderness - Neurological Exam Neurological exam: Present: alert, oriented X3, motor sensory deficit (Lower extremities) - Skin Skin exam: Present: normal color Results - Labs CBC & BMP: 01/18/17 05:43 01/18/17 05:43 Specialty Discharge - Follow Up or Referrals
[2017-01-18] MEDS: SODIUM CHLORIDE 0.9% 1,000 ML IV SCH (16:10)
[2017-01-18] MEDS: FERROUS SULFATE 325 MG TABLET PO SCH (21:05)
[2017-01-18] MEDS: BACLOFEN 10 MG TABLET PO SCH (21:05)
[2017-01-18] MEDS: ATORVASTATIN 40 MG TABLET PO SCH (21:05)
[2017-01-19] MEDS: PANTOPRAZOLE INJ 200 MG in SODIUM CHLORIDE 0.9% 250 ML IV SCH (02:43)
[2017-01-19 05:22] LABS: Basophils % 0.2 % (0.0-0.8); Eosinophils % 0.1 % (0.00-10.9); Hematocrit 27.2 VOL% (42.0-52.0); Hemoglobin 9.1 GM/DL (14.0-18.0); Immature Granulocytes % 0.7 %; Immature Granulocytes Absolute 0.07 #; Lymphocytes # 0.7 10*3/uL (1.4-4.0); Lymphocytes % 6.9 % (21.2-54.2); Mean Corpuscular HGB Conc 33.5 GM/DL (32-36); Mean Corpuscular Hemoglobin 32 PG (27-34); Mean Corpuscular Volume 96.1 FL (87-102); Monocytes # 0.6 10*3/uL (0.11-0.8); Monocytes % 5.9 % (1.7-12.7); Neutrophils # 8.8 10*3/uL (1.4-7.4); Neutrophils % 86.2 % (38.7-73.9); Platelet Count 295 T/CUMM (130-400); Red Blood Count 2.83 MC/CUMM (3.8-5.5); Red Cell Distribution Width 17.4 % (9.3-17.3); White Blood Count 10.2 T/CUMM (4-12)
[2017-01-19 05:50] LABS: Calcium 8.1 MG/DL (8.5-10.1); Magnesium 1.9 MG/DL (1.8-2.4); Osmolality,Calculated 280.1 MOS/KG (273-304); Potassium 3.9 MMOL/L (3.5-5.1)
[2017-01-19] MEDS: INSULIN LISPRO 100 UNIT/ML SUBCUT SCH ×5 (08:01→20:58)
[2017-01-19] MEDS ORDERED: INSULIN GLARGINE 100 UNIT/ML SUBCUT SCH ×2 (09:00→21:00)
--- NOTE | 2017-01-19 09:27 | Hospitalist Progress Note ---
Assessment and Plan (1) Diabetes Status: Chronic Assessment and plan: The patient had hypoglycemia this morning. 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 The patient's breathing is improving each day. Going to add some prednisone and DuoNeb's. The patient may be ready for discharge home tomorrow. I am going to change Protonix from infusion to oral pill. Current Visit: No Qualifiers: Diabetes mellitus type: type 2 Diabetes mellitus complication status: with hypoglycemia Diabetes mellitus solution coordinator insulin use: with solution coordinator use (2) COPD (chronic obstructive pulmonary disease) Status: Acute Current Visit: Yes (3) GI bleed Status: Acute Current Visit: Yes (4) Parkinson disease Status: Acute Current Visit: Yes (5) Cramping of feet Problem details: Cramping many years feet and calves Status: Acute Current Visit: Yes (6) Lumbar compression fracture Problem details: Moderate back pain with multiple lumbar compression fractures Status: Acute Current Visit: Yes Qualifiers: Encounter type: initial encounter Fracture type: closed Qualified Code(s) : S32.000A - Wedge compression fracture of unspecified lumbar vertebra, initial encounter for closed fracture Hospitalist: Subjective Interval history: The patient is in good spirits today. He has less abdominal pain. The patient is not complaining of back discomfort today. The patient states that his usual lower extremity discomfort at night improved after taking baclofen as prescribed by Dr. Rahman. The patient is now remembering that he first came to the hospital on account of shortness of breath. This is improving but not resolved. Exam - Constitutional Vitals: Period Temp Pulse Resp BP Sys/Morley Pulse Ox Last 24 Hr 95.9 F-97.8 F 77-94 12- 66-117/47-058 86-100 Exam: Constitutional System: Mild distress. No tremulousness. Head: Normocephalic, atraumatic. Ears, Nose and Throat System: No evidence of Otitis or Mastoiditis. No epistaxis or discharge Eyes System: Pupils equal, round, and reactive. Extraocular muscles intact. Neck: Supple, without adenopathy, No jugular venous distention. No thyromegaly , neck mass, or prior surgery apparent. Respiratory System: Chest moderate air trapping and minimal wheezing to auscultation. Cardiovascular System: Heart with regular rate and rhythm. No murmur. GI System: Abdomen soft, nontender. Normo active bowel sounds present. Musculoskeletal System: limbs with no pedal edema. Full distal pulses. Neurological System: No discernable sensory deficit. No aphasia Psychiatric System: Conversation is rational Results - Labs CBC & BMP: 01/19/17 04:12 01/19/17 04:12 Lab Results: I have reviewed the past 24 hour labs Specialty Discharge - Follow Up or Referrals
--- NOTE | 2017-01-19 09:34 | Gastrointestinal Progress Note ---
<Arlyn Troy - Last Filed: 01/19/17 09:31> Assessment and Plan (1) GI bleed Status: Acute Assessment and plan: 01/19-No further overt bleeding. HH stable at 03/24. Advance diet today. No plans for colonoscopy at this time. Plan and addendum to follow by Dr Persaud. Current Visit: Yes Gastroenterology - PN: Subj Interval history: CC: GI bleed Pt is seen, awake and alert, ambulating to the shower with staff assistance. He states he had an uneventful night and denies any further overt bleeding. He denies any abdominal pain, nausea or vomiting. Abdomen is soft, nontender. Dr Rahman is following for compression fractures and pain management for this. HH is stable at 03/24. ROS: Denies SOB or chest pain Exam (Progress Note) - Constitutional Vitals: Period Temp Pulse Resp BP Sys/Morley Pulse Ox Last 24 Hr 95.9 F-97.8 F 77-94 12- 66-117/47-058 86-100 General appearance: normal weight, no acute distress - Head Head exam: Present: normal inspection, normocephalic - Eye Eye exam: Present: other (lids and conjunctiva unremarkable). Absent: scleral icterus - ENT ENT exam: Present: normal exam, normal oropharynx - Neck Neck exam: Present: normal inspection - Respiratory Respiratory exam: Present: clear to auscultation bilaterally. Absent: rales, rhonchi, wheezes - Cardiovascular Cardiovascular exam: Present: regular rate and rhythm. Absent: diastolic murmur , JVD, systolic murmur - GI/Abdominal GI/Abdominal exam: Present: normal bowel sounds, soft. Absent: ascites, distended, mass, organomegaly, tenderness - Extremities Exam Extremities exam: Present: normal inspection, full ROM - Back Exam Back exam: Present: normal inspection - Neurological Exam Neurological exam: Present: alert, oriented X3 - Psychiatric Psychiatric exam: Present: normal affect, normal mood - Skin Skin exam: Present: normal color, warm, dry Results - Labs CBC & BMP: 01/19/17 04:12 01/19/17 04:12 Lab Results: I have reviewed the past 24 hour labs Specialty Discharge - Follow Up or Referrals <Amrit Persaud - Last Filed: 01/19/17 18:08> Exam (Progress Note) - Constitutional Vitals: Period Temp Pulse Resp BP Sys/Morley Pulse Ox Last 24 Hr 97 F-98 F 79-92 12-20 99-117/50-63 97-100 Results - Labs CBC & BMP: 01/19/17 04:12 01/19/17 04:12
[2017-01-19] MEDS: LEVOTHYROXINE 50 MCG TABLET PO SCH (09:59)
[2017-01-19] MEDS: predniSONE 20 MG TABLET PO SCH (10:00)
[2017-01-19] MEDS: FUROSEMIDE 20 MG TABLET PO SCH ×2 (10:00→16:57)
[2017-01-19] MEDS: FERROUS SULFATE 325 MG TABLET PO SCH ×2 (10:00→20:19)
[2017-01-19] MEDS: NAMENDA XR 28 MG PO SCH (10:01)
[2017-01-19] MEDS: CARBIDOPA/LEVODOPA CR 50-200 MG TABLET PO SCH (11:05)
[2017-01-19] MEDS: PRAMIPEXOLE 1 MG TABLET PO SCH ×2 (11:05→20:18)
[2017-01-19] MEDS: ALBUTEROL/IPRATROPIUM 3 ML NEB RESP TX SCH ×2 (13:36→18:56)
--- NOTE | 2017-01-19 14:48 | Pain Management Progress Note ---
Assessment and Plan (1) Cramping of feet Problem details: Cramping many years feet and calves Status: Acute Assessment and plan: 01/19/2017. The patient denies any significant muscle cramps last night and slept well for the first time in a very long time. My recommendation is to continue the baclofen as previously prescribed. n 01/18/2017. The patient is very pleasant 81-year-old male patient of the [facility]. He reports cramping in his calves and feet, and wants something done about this during this visit. He states that he has had this for decades. Will try baclofen at nighttime. He has tried multiple medicines. He is on magnesium at home. He is an active patient at the [facility]. y Current Visit: Yes (2) Lumbar compression fracture Problem details: Moderate back pain with multiple lumbar compression fractures Status: Acute Assessment and plan: The patient's CT scan of abdomen and pelvis demonstrates lumbar compression fractures L1-L5. Most of these appear old. L1 probably more recent. He does report having multiple falls over the past year. Workup of this could be considered if more painful however he has very little back pain at this time. He is able to transition from a sitting lying and standing position without difficulty. At this point no intervention are further workup indicated. Again if his back becomes more symptomatic then MRI would be helpful, however he is mostly pain-free in the back and moves well without back pain. Current Visit: Yes Qualifiers: Encounter type: initial encounter Fracture type: closed Qualified Code(s) : S32.000A - Wedge compression fracture of unspecified lumbar vertebra, initial encounter for closed fracture Pain - Subjective Interval history: Denies muscle cramps last night and slept well for the first time in a long time. Exam - Constitutional Vitals: Period Temp Pulse Resp BP Sys/Morley Pulse Ox Last 24 Hr 95.9 F-97.9 F 77-92 12-20 99-117/50-63 86-100 Results - Labs CBC & BMP: 01/19/17 04:12 01/19/17 04:12 Specialty Discharge - Follow Up or Referrals
[2017-01-19] MEDS: BACLOFEN 10 MG TABLET PO SCH (20:18)
[2017-01-19] MEDS: PANTOPRAZOLE 40 MG TABLET PO SCH (20:19)
[2017-01-19] MEDS: ATORVASTATIN 40 MG TABLET PO SCH (20:19)
[2017-01-20] MEDS: ALBUTEROL/IPRATROPIUM 3 ML NEB RESP TX SCH ×3 (00:39→12:38)
[2017-01-20 04:48] LABS: Basophils % 0.2 % (0.0-0.8); Eosinophils % 0.3 % (0.00-10.9); Hematocrit 26.6 VOL% (42.0-52.0); Hemoglobin 8.8 GM/DL (14.0-18.0); Immature Granulocytes % 0.5 %; Immature Granulocytes Absolute 0.06 #; Lymphocytes % 15.7 % (21.2-54.2); Mean Corpuscular HGB Conc 33.1 GM/DL (32-36); Mean Corpuscular Hemoglobin 32 PG (27-34); Mean Corpuscular Volume 97.1 FL (87-102); Mean Platelet Volume 11.2 FL (9.6-12.0); Monocytes # 0.8 10*3/uL (0.11-0.8); Monocytes % 6.3 % (1.7-12.7); Neutrophils # 9.7 10*3/uL (1.4-7.4); Platelet Count 312 T/CUMM (130-400); Red Blood Count 2.74 MC/CUMM (3.8-5.5); Red Cell Distribution Width 17.4 % (9.3-17.3); White Blood Count 12.6 T/CUMM (4-12)
[2017-01-20 05:17] LABS: Calcium 8.1 MG/DL (8.5-10.1); Magnesium 1.7 MG/DL (1.8-2.4); Osmolality,Calculated 283.4 MOS/KG (273-304); Potassium 3.8 MMOL/L (3.5-5.1)
--- NOTE | 2017-01-20 08:52 | Gastrointestinal Progress Note ---
<AldozacArlyn Carisa - Last Filed: 01/20/17 08:50> Assessment and Plan (1) GI bleed Status: Acute Assessment and plan: 01/20-slight decrease in H&H without overt bleeding. Tolerating diet. No complaints. Plan an addendum to follow by Dr. Persaud 01/19-No further overt bleeding. HH stable at 03/24. Advance diet today. No plans for colonoscopy at this time. Plan and addendum to follow by Dr Persaud. Current Visit: Yes Gastroenterology - PN: Subj Interval history: CC: GI bleed Patient is seen awake and alert sitting on edge of bed. States he did not sleep well last night but relates this to taking a long nap yesterday afternoon. He denies any overt bleeding. H&H is down slightly today at 8.8/ . Mild elevation in WBCs at 12,000. Is tolerating his diet well at this time. Denies any pain, nausea or vomiting. Abdomen is soft, nontender. ROS: Denies shortness of breath or chest pain Exam (Progress Note) - Constitutional Vitals: Period Temp Pulse Resp BP Sys/Morley Pulse Ox Last 24 Hr 97.7 F-98.6 F 80-92 12-20 99-115/50-63 96-100 General appearance: normal weight, no acute distress - Head Head exam: Present: normal inspection, normocephalic - Eye Eye exam: Present: other (Lids and conjunctivae are unremarkable). Absent: scleral icterus - ENT ENT exam: Present: normal exam, normal oropharynx - Neck Neck exam: Present: normal inspection - Respiratory Respiratory exam: Present: clear to auscultation bilaterally. Absent: rales, rhonchi, wheezes - Cardiovascular Cardiovascular exam: Present: regular rate and rhythm. Absent: diastolic murmur , JVD, systolic murmur - GI/Abdominal GI/Abdominal exam: Present: normal bowel sounds, soft. Absent: ascites, distended, mass, organomegaly, tenderness - Extremities Exam Extremities exam: Present: normal inspection, full ROM - Back Exam Back exam: Present: normal inspection - Neurological Exam Neurological exam: Present: alert, oriented X3 - Psychiatric Psychiatric exam: Present: normal affect, normal mood - Skin Skin exam: Present: normal color, warm, dry Results - Labs CBC & BMP: 01/20/17 03:56 01/20/17 03:56 Lab Results: I have reviewed the past 24 hour labs Specialty Discharge - Follow Up or Referrals <Amrit Persaud - Last Filed: 01/20/17 10:33> Exam (Progress Note) - Constitutional Vitals: Period Temp Pulse Resp BP Sys/Morley Pulse Ox Last 24 Hr 97.7 F-98.6 F 80-92 12-20 99-115/50-63 96-100 Results - Labs CBC & BMP: 01/20/17 03:56 01/20/17 03:56
[2017-01-20] MEDS: INSULIN LISPRO 100 UNIT/ML SUBCUT SCH ×2 (08:59→12:54)
[2017-01-20] MEDS ORDERED: PANTOPRAZOLE 40 MG VIAL IV SCH (09:00)
[2017-01-20] MEDS: NAMENDA XR 28 MG PO SCH (09:10)
[2017-01-20] MEDS: FUROSEMIDE 20 MG TABLET PO SCH (09:10)
[2017-01-20] MEDS: predniSONE 20 MG TABLET PO SCH (09:10)
[2017-01-20] MEDS: FERROUS SULFATE 325 MG TABLET PO SCH (09:11)
[2017-01-20] MEDS: PANTOPRAZOLE 40 MG TABLET PO SCH (09:11)
[2017-01-20] MEDS: LEVOTHYROXINE 50 MCG TABLET PO SCH (09:11)
[2017-01-20] MEDS: CARBIDOPA/LEVODOPA CR 50-200 MG TABLET PO SCH (09:11)
[2017-01-20] MEDS: PRAMIPEXOLE 1 MG TABLET PO SCH (09:18)
--- NOTE | 2017-01-20 11:32 | Discharge Summary ---
Hospital Course - Hospital Course Hospital Course: The patient came to hospital on account of difficulty breathing. He has COPD and frequent exacerbations. While in the emergency room he was noted to have dark smelly stools which were guaiac positive and anemia. The patient was admitted to intensive care unit. The patient had transfusion and GI consultation. Esophagogastroduodenoscopy revealed gastric ulcer and the patient was treated with Protonix. The patient had no further bleeding during hospital stay. The patient's COPD was treated with IV antibiotic, IV steroid, and beta agonist nebulized breathing therapy. The patient has improved and is now ready for discharge home. At the time of admission the patient had CT scan which showed compression fractures. Dr. Goodman was consulted but felt that these fractures were likely old and the patient was not symptomatic and therefore kyphoplasty was not indicated. On the date of discharge, the chest has moderate air trapping per his chronic disease and no wheezing. Heart has regular rate and rhythm. 34 minutes were spent on [id number] evaluation, education, and discharge procedures including prescriptions. On the date of discharge, I screened the patient for tobacco use. The patient is a former smoker. I gave the patient 4 minutes education concerning the need to continue avoiding tobacco. - Time spent with patient Time with patient DS: Greater than 30 minutes Diagnosis - Discharge Diagnosis (1) Diabetes Status: Chronic (2) COPD (chronic obstructive pulmonary disease) Status: Chronic (3) GI bleed Status: Resolved (4) Parkinson disease Status: Chronic (5) Cramping of feet Status: Resolved (6) Lumbar compression fracture Status: Chronic Specialty Discharge - Follow Up or Referrals Discharge Plan - Discharge Data Disposition: Disch To Home/Self Care Condition at Discharge: Stable Discharge Diet: diabetic diet Activity: resume usual activities as tolerated - Discharge Medications New Omeprazole [Prilosec] 20 mg PO DAILY #30 capsule predniSONE TAB [PredniSONE] 10 mg PO DAILY #10 tablet Baclofen Tab [Lioresal] 10 mg PO BEDTIME #30 tablet Continue Pramipexole Di-HCl [Pramipexole Dihydrochloride] 1 mg PO BID Ferrous Sulfate 1 tablet PO BID Potassium Chloride 10 meq PO QPM Insulin Lispro [HumaLOG] 1 unit SUBCUT DAILY Memantine HCl [Namenda XR] 28 mg PO QPM Insulin Glargine [Lantus] 12 unit SUBCUT DAILY #0 Levothyroxine Tab [Synthroid Tab] 50 mcg PO DAILY Furosemide Tab [Lasix Tab] 20 mg PO DAILY Carvedilol [Coreg] 3.125 mg PO BID PRN PRN Reason: Dizziness Gabapentin 600 mg PO BEDTIME Apixaban [Eliquis] 2.5 mg PO QAM Hydrocodone/Acetaminophen [Hydrocodon-Acetaminophn 10-325] 1 each PO DAILY PRN PRN Reason: Pain Carbidopa/Levodopa [Carbidopa-Levo ER 50-200 Tab] 1 each PO DAILY Atorvastatin [Lipitor] 40 mg PO BEDTIME Cyclobenzaprine HCl 10 mg PO BEDTIME Donepezil HCl 10 mg PO BEDTIME Folic Acid 0.8 mg PO DAILY - Follow Up or Referral - Forms/Instructions Instructions: Gastrointestinal Bleeding (GEN), Anemia (GEN) Exam - Constitutional Vitals: Period Temp Pulse Resp BP Sys/Morley Pulse Ox Last 24 Hr 97.7 F-98.6 F 80-92 12-20 99-115/50-63 96-100 Discharge Results Labs on day of discharge: Labs from last 24 hours 01/20/17 01/20/17 01/20/17 08:23 07:11 03:56 WBC RBC Hgb Hct MCV MCH MCHC RDW Plt Count MPV Neut % (Auto) Lymph % (Auto) [place] % (Auto) Eos % (Auto) Baso % (Auto) Neut # (Auto) Lymph # (Auto) [place] # (Auto) Eos # (Auto) Baso # (Auto) Immature Gran % Nucleated RBC % Immature Gran # Nucleated RBCs # Sodium 140 Potassium 3.8 Chloride 103 Carbon Dioxide 30 Anion Gap 10.8 BUN 17 Creatinine 1.20 GFR Calculation 54 BUN/Creatinine Ratio 14.00 Glucose 159 H POC Glucose 68 L 64 L Calculated Osmolality 283.4 Calcium 8.1 L Magnesium 1.7 L 01/20/17 01/19/17 01/19/17 03:56 20:49 19:37 WBC 12.6 H RBC 2.74 L Hgb 8.8 L Hct 26.6 L MCV 97.1 MCH 32 MCHC 33.1 RDW 17.4 H Plt Count 312 MPV 11.2 Neut % (Auto) 77.0 H Lymph % (Auto) 15.7 L [place] % (Auto) 6.3 Eos % (Auto) 0.3 Baso % (Auto) 0.2 Neut # (Auto) 9.7 H Lymph # (Auto) 2.0 [place] # (Auto) 0.8 Eos # (Auto) 0.0 Baso # (Auto) 0.0 Immature Gran % 0.5 Nucleated RBC % 0.0 Immature Gran # 0.06 Nucleated RBCs # 0.00 Sodium Potassium Chloride Carbon Dioxide Anion Gap BUN Creatinine GFR Calculation BUN/Creatinine Ratio Glucose POC Glucose 148 H 74 Calculated Osmolality Calcium Magnesium 01/19/17 01/19/17 01/19/17 18:48 16:03 13:59 WBC RBC Hgb Hct MCV MCH MCHC RDW Plt Count MPV Neut % (Auto) Lymph % (Auto) [place] % (Auto) Eos % (Auto) Baso % (Auto) Neut # (Auto) Lymph # (Auto) [place] # (Auto) Eos # (Auto) Baso # (Auto) Immature Gran % Nucleated RBC % Immature Gran # Nucleated RBCs # Sodium Potassium Chloride Carbon Dioxide Anion Gap BUN Creatinine GFR Calculation BUN/Creatinine Ratio Glucose POC Glucose 51 L 238 H 428 H Calculated Osmolality Calcium Magnesium 01/19/17 11:39 WBC RBC Hgb Hct MCV MCH MCHC RDW Plt Count MPV Neut % (Auto) Lymph % (Auto) [place] % (Auto) Eos % (Auto) Baso % (Auto) Neut # (Auto) Lymph # (Auto) [place] # (Auto) Eos # (Auto) Baso # (Auto) Immature Gran % Nucleated RBC % Immature Gran # Nucleated RBCs # Sodium Potassium Chloride Carbon Dioxide Anion Gap BUN Creatinine GFR Calculation BUN/Creatinine Ratio Glucose POC Glucose > 500 H* Calculated Osmolality Calcium Magnesium DS: Provider Date of admission: 01/16/17 17:18 Primary care physician: . No PCP Attending physician on admission: Asad Daniels MD Consults: 01/16/17 18:32 Consult to Physician [CONS] Routine Comment: Consulting Provider: Zarina Gaines Consult to Specialist Group: Gastroenterology Person Notified: Dr. 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
--- NOTE | 2017-01-20 11:58 | Pain Management Progress Note ---
Assessment and Plan (1) Cramping of feet Problem details: Cramping many years feet and calves Status: Resolved Assessment and plan: 01/20/2017. The patient continues to have improvement of lower extremity muscle cramps at night. Some restless leg symptomatology. He is being discharged today. He presently has a pain doctor at [facility] and is to follow-up with him. He knows I am available as needed. The baclofen should be continued as was prescribed in the hospital. n 01/19/2017. The patient denies any significant muscle cramps last night and slept well for the first time in a very long time. My recommendation is to continue the baclofen as previously prescribed. n 01/18/2017. The patient is very pleasant 81-year-old male patient of the [facility]. He reports cramping in his calves and feet, and wants something done about this during this visit. He states that he has had this for decades. Will try baclofen at nighttime. He has tried multiple medicines. He is on magnesium at home. He is an active patient at the [facility] [place]. y Current Visit: Yes (2) Lumbar compression fracture Problem details: Moderate back pain with multiple lumbar compression fractures Status: Chronic Assessment and plan: The patient's CT scan of abdomen and pelvis demonstrates lumbar compression fractures L1-L5. Most of these appear old. L1 probably more recent. He does report having multiple falls over the past year. Workup of this could be considered if more painful however he has very little back pain at this time. He is able to transition from a sitting lying and standing position without difficulty. At this point no intervention are further workup indicated. Again if his back becomes more symptomatic then MRI would be helpful, however he is mostly pain-free in the back and moves well without back pain. Current Visit: Yes Qualifiers: Encounter type: initial encounter Fracture type: closed Qualified Code(s) : S32.000A - Wedge compression fracture of unspecified lumbar vertebra, initial encounter for closed fracture Pain - Subjective Interval history: Continued improvement cramping at night lower extremities. Some restless leg syndrome. Exam - Constitutional Vitals: Period Temp Pulse Resp BP Sys/Morley Pulse Ox Last 24 Hr 97.7 F-98.6 F 80-92 12-20 99-115/50-63 96-100 Results - Labs CBC & BMP: 01/20/17 03:56 07/26/17 03:56 Specialty Discharge - Follow Up or Referrals
[2017-01-20 12:13] VITALS: BP 114/68
--- NOTE | 2017-01-26 15:57 | Physician Query Form ---
CLICK EDIT DOCUMENT TO SELECT QUERY ANSWER --> OK --> SIGN Roslyn Kulkarni RN [facility] W) [phone] (f) [phone] [email or web address]: Make your selection(s) from the choices in EACH section by typing an "x" and enter comments in the comment section. Please use your independent medical judgment in providing your response. This request does not imply that any particular answer is desired or expected. CLINICAL INDICATORS: (Providers should not edit this section) Based on documentation of "NSAID related ulcer" "Found to have gastric ulcers" EGD shows "Acute peptic ulcer disease likely secondary to nonsteroidals complicated by anticoagulants" Discharge summary states "Esophagogastroduodenoscopy revealed gastric ulcer and the patient was treated with Protonix" Based on the above, could you clarify the appropriate diagnosis, if significant , that supports the above abnormalities and additional evaluation, monitoring, and/or treatment rendered: (X ) Acute Peptic Ulcer disease likely secondary to Nonsteroidals complicated by anticoagulants ( ) Gastric ulcer ( ) Other, please specify: ( ) Clinically unable to determine COMMENTS: PLEASE ALSO DOCUMENT RESPONSE IN PROGRESS NOTES AND/OR DISCHARGE SUMMARY Use of terms such as suspected, likely, or probable (associated with a specific diagnosis that is being evaluated, monitored, or treated as if it exists) are acceptable and can be restated in the discharge summary if not ruled out. MTDD
== END 2017-01-20 14:00 | disposition home or self-care (01) | DRG 378 ==
LOC: N.ED 15:24 → SUATTDRO 17:18 → N.EDINP 17:18 → N.CC 18:11 → N.4E 01-18 15:08
PROVIDERS: ADMIT Family Medicine; ATTEND Internal Medicine

== ENCOUNTER 2018-09-10 16:45 | Inpatient (IN) ==
[2018-09-10] MEDS ORDERED: ORPHENADRINE 60 MG/2 ML VIAL IV STA (17:14)
[2018-09-10] MEDS ORDERED: ONDANSETRON 4 MG/2 ML VIAL IV STA (17:14)
[2018-09-10] MEDS ORDERED: NITROGLYCERIN 2% OINT 1 INCH/GM PACK TOP STA (17:14)
[2018-09-10 17:27] LABS: Basophils % 0.5 % (0.0-0.8); Eosinophils # 0.1 10*3/uL (0.0-0.87); Eosinophils % 1.6 % (0.00-10.9); Hematocrit 32.5 VOL% (42.0-52.0); Hemoglobin 10.2 GM/DL (14.0-18.0); Immature Granulocytes % 0.4 %; Immature Granulocytes Absolute 0.03 #; Lymphocytes # 1.1 10*3/uL (1.4-4.0); Lymphocytes % 13.5 % (21.2-54.2); Mean Corpuscular HGB Conc 31.4 GM/DL (32-36); Mean Corpuscular Hemoglobin 30 PG (27-34); Mean Platelet Volume 11.2 FL (9.6-12.0); Monocytes # 0.8 10*3/uL (0.11-0.8); Neutrophils # 6.3 10*3/uL (1.4-7.4); Platelet Count 354 T/CUMM (130-400); Red Blood Count 3.42 MC/CUMM (3.8-5.5); White Blood Count 8.3 T/CUMM (4-12)
[2018-09-10 17:38] LABS: INR 0.9; Partial Thromboplastin Time 28.4 SECS (0-40)
[2018-09-10 17:54] LABS: Alanine Aminotransferase 36 U/L (16-61); Albumin 2.6 G/DL (3.4-5.0); Alkaline Phosphatase 176 U/L (45-117); Aspartate Amino Transferase 23 U/L (0-37); Blood Urea Nitrogen 29 MG/DL (7-18); Calcium 8.6 MG/DL (8.5-10.1); Osmolality,Calculated 295.5 MOS/KG (273-304); Potassium 4.6 MMOL/L (3.5-5.1); Sodium 132 MMOL/L (136-145); Total Protein 7.2 G/DL (6.4-8.3); Troponin I < 0.015 NG/ML (0.00-0.045)
[2018-09-10 17:59] LABS: Glucose 560 MG/DL (74-106)
[2018-09-10] MEDS ORDERED: INSULIN REGULAR 100 UNIT/ML SUBCUT STA (18:14)
[2018-09-10] MEDS ORDERED: INSULIN REGULAR 100 UNIT/ML IV STA (18:14)
[2018-09-10 19:11] LABS: Apearance,Urine CLEAR (Clear); Bacteria,Urine Occasional /HPF (Few); Bilirubin,Urine Negative (Negative); Blood, Urine Negative (Negative); Glucose,Urine (UA) >=500 mg/dL (Negative); Hyaline Casts,Urine 1 /LPF (0-3); Ketones,Urine Negative (Negative); Nitrite,Urine Negative (Negative); Protein,Urine Negative; RBC,Urine <1 /HPF (0-4); Urine Color Straw (Yellow); Urine Specific Gravity 1.008 (1.001-1.035); Urine Urobilinogen < 2.0 EU/DL (0.2-1.0); WBC,Urine 1 /HPF (0-6)
[2018-09-10] MEDS ORDERED: DOCUSATE SODIUM 100 MG CAPSULE PO PRN (19:52)
[2018-09-10] MEDS ORDERED: ONDANSETRON 4 MG/2 ML VIAL IV PRN (19:52)
[2018-09-10] MEDS ORDERED: GLUCAGON 1 MG VIAL IM PRN ×2 (19:55→20:35)
[2018-09-10] MEDS ORDERED: DEXTROSE 50% 25 GM/50 ML VIAL IV PRN (19:55)
[2018-09-10] MEDS ORDERED: ceFAZolin 1,000 MG VIAL IRRIG SCH (20:30)
[2018-09-10] MEDS ORDERED: INSULIN GLARGINE 100 UNIT/ML SUBCUT SCH (21:00)
[2018-09-10] MEDS: DEXTROSE 50% 25 GM/50 ML SYRINGE IV PRN (21:52)
[2018-09-10] MEDS: INSULIN REGULAR 100 UNIT/ML SUBCUT SCH (22:30)
[2018-09-10 23:01] LABS: Troponin I < 0.015 NG/ML (0.00-0.045)
[2018-09-10] MEDS: DONEPEZIL 10 MG TABLET PO SCH (23:15)
[2018-09-10] MEDS: PRAMIPEXOLE 1 MG TABLET PO SCH (23:15)
[2018-09-10] MEDS: ENOXAPARIN 40 MG/0.4 ML SYRINGE SUBCUT SCH (23:15)
[2018-09-10] MEDS: FERROUS SULFATE 325 MG TABLET PO SCH (23:15)
[2018-09-10] MEDS: PANTOPRAZOLE 40 MG TABLET PO SCH (23:16)
[2018-09-10] MEDS: ceFAZolin 500 MG in SYRINGE 1 EACH IV SCH (23:16)
[2018-09-10] MEDS: CYCLOBENZAPRINE 10 MG TABLET PO PRN (23:23)
[2018-09-11] MEDS: DEXTROSE 50% 25 GM/50 ML SYRINGE IV PRN ×2 (01:09→15:54)
[2018-09-11] MEDS: TROLAMINE SALICYLATE 10% CREAM 85 GM TUBE TOP PRN ×2 (02:37→13:16)
[2018-09-11 03:00] LABS: Basophils % 0.3 % (0.0-0.8); Eosinophils # 0.1 10*3/uL (0.0-0.87); Eosinophils % 0.6 % (0.00-10.9); Hemoglobin 9.2 GM/DL (14.0-18.0); Immature Granulocytes % 0.6 %; Immature Granulocytes Absolute 0.06 #; Lymphocytes # 0.7 10*3/uL (1.4-4.0); Lymphocytes % 7.5 % (21.2-54.2); Mean Corpuscular HGB Conc 31.7 GM/DL (32-36); Mean Corpuscular Hemoglobin 30 PG (27-34); Mean Corpuscular Volume 94.5 FL (87-102); Monocytes # 0.8 10*3/uL (0.11-0.8); Monocytes % 8.1 % (1.7-12.7); Neutrophils # 7.9 10*3/uL (1.4-7.4); Neutrophils % 82.9 % (38.7-73.9); Platelet Count 319 T/CUMM (130-400); Red Blood Count 3.07 MC/CUMM (3.8-5.5); Red Cell Distribution Width 14.9 % (9.3-17.3); White Blood Count 9.5 T/CUMM (4-12)
[2018-09-11 03:22] LABS: % Iron Saturation 20.6 % (18-50); Ferritin 81.3 ng/ml (26-388)
[2018-09-11 03:24] LABS: Troponin I < 0.015 NG/ML (0.00-0.045)
[2018-09-11 03:31] LABS: Calcium 8.6 MG/DL (8.5-10.1); Osmolality,Calculated 282.8 MOS/KG (273-304); Potassium 4.4 MMOL/L (3.5-5.1); Thyroid Stimulating Hormone 2.52 uIU/ml (0.358-3.74)
[2018-09-11 04:08] LABS: Sedimentation Rate-Westergren 101 MM/HR (0-20)
[2018-09-11 04:12] LABS: Folate 15.6 NG/ML (5.4-24.0); Vitamin B12 445 PG/ML (211-911)
[2018-09-11] MEDS: ceFAZolin 500 MG in SYRINGE 1 EACH IV SCH ×3 (05:23→21:34)
[2018-09-11] MEDS: LEVOTHYROXINE 175 MCG TABLET PO SCH (05:28)
[2018-09-11] MEDS: FERROUS SULFATE 325 MG TABLET PO SCH ×2 (09:06→21:30)
[2018-09-11] MEDS: INSULIN REGULAR 100 UNIT/ML SUBCUT SCH ×4 (09:06→22:12)
[2018-09-11] MEDS: ASPIRIN EC 81 MG TABLET PO SCH (09:06)
[2018-09-11] MEDS: ATORVASTATIN 40 MG TABLET PO SCH (09:06)
[2018-09-11] MEDS: FOLIC ACID 1 MG TABLET PO SCH (09:06)
[2018-09-11] MEDS: PANTOPRAZOLE 40 MG TABLET PO SCH ×2 (09:07→21:30)
[2018-09-11] MEDS: FUROSEMIDE 40 MG/4 ML VIAL IV SCH (09:07)
[2018-09-11] MEDS: CALCITONIN NASAL SPRAY 3.7 ML BOTTLE ONE NARE SCH (09:11)
[2018-09-11] MEDS: CYCLOBENZAPRINE 10 MG TABLET PO PRN (13:15)
[2018-09-11] MEDS: fentaNYL 25 MCG/HR PATCH TRANSDERM SCH (17:58)
[2018-09-11] MEDS: PRAMIPEXOLE 1 MG TABLET PO SCH (21:30)
[2018-09-11] MEDS: ENOXAPARIN 40 MG/0.4 ML SYRINGE SUBCUT SCH (21:30)
[2018-09-11] MEDS: DONEPEZIL 10 MG TABLET PO SCH (21:30)
[2018-09-11] MEDS: INSULIN GLARGINE 100 UNIT/ML SUBCUT SCH (23:49)
[2018-09-12 05:04] LABS: Basophils % 0.4 % (0.0-0.8); Eosinophils # 0.1 10*3/uL (0.0-0.87); Eosinophils % 1.6 % (0.00-10.9); Hematocrit 28.1 VOL% (42.0-52.0); Hemoglobin 8.9 GM/DL (14.0-18.0); Immature Granulocytes % 0.6 %; Immature Granulocytes Absolute 0.04 #; Lymphocytes # 1.2 10*3/uL (1.4-4.0); Lymphocytes % 17.6 % (21.2-54.2); Mean Corpuscular HGB Conc 31.7 GM/DL (32-36); Mean Corpuscular Hemoglobin 30 PG (27-34); Mean Corpuscular Volume 95.9 FL (87-102); Mean Platelet Volume 10.6 FL (9.6-12.0); Monocytes # 0.8 10*3/uL (0.11-0.8); Monocytes % 11.5 % (1.7-12.7); Neutrophils # 4.6 10*3/uL (1.4-7.4); Neutrophils % 68.3 % (38.7-73.9); Platelet Count 278 T/CUMM (130-400); Red Blood Count 2.93 MC/CUMM (3.8-5.5); White Blood Count 6.7 T/CUMM (4-12)
[2018-09-12 05:30] LABS: Calcium 8.4 MG/DL (8.5-10.1); Osmolality,Calculated 283.5 MOS/KG (273-304); Potassium 4.2 MMOL/L (3.5-5.1)
[2018-09-12] MEDS: ceFAZolin 500 MG in SYRINGE 1 EACH IV SCH ×3 (06:11→22:01)
[2018-09-12] MEDS: LEVOTHYROXINE 175 MCG TABLET PO SCH (06:12)
[2018-09-12 09:45] LABS: Hemoglobin A1 (Alkaline) 98.3 % (96.5-98.5); Hemoglobin A2 (Alkaline) 1.7 % (1.5-3.5)
[2018-09-12] MEDS: CHOLECALCIFEROL 1,000 UNIT TABLET PO SCH (09:57)
[2018-09-12] MEDS: ASPIRIN EC 81 MG TABLET PO SCH (09:58)
[2018-09-12] MEDS: FOLIC ACID 1 MG TABLET PO SCH (09:58)
[2018-09-12] MEDS: PANTOPRAZOLE 40 MG TABLET PO SCH ×2 (09:58→22:00)
[2018-09-12] MEDS: FUROSEMIDE 40 MG/4 ML VIAL IV SCH (09:59)
[2018-09-12] MEDS: ATORVASTATIN 40 MG TABLET PO SCH (09:59)
[2018-09-12] MEDS: FERROUS SULFATE 325 MG TABLET PO SCH ×2 (09:59→22:00)
[2018-09-12] MEDS: CALCITONIN NASAL SPRAY 3.7 ML BOTTLE ONE NARE SCH (09:59)
[2018-09-12] MEDS: TROLAMINE SALICYLATE 10% CREAM 85 GM TUBE TOP PRN (10:06)
[2018-09-12] MEDS: DOCUSATE SODIUM 100 MG CAPSULE PO SCH ×2 (13:57→22:00)
[2018-09-12] MEDS: POLYETHYLENE GLYCOL POWDER 17 GM PACK PO SCH (13:57)
[2018-09-12] MEDS: ACETAMINOPHEN 325 MG TABLET PO PRN (14:21)
[2018-09-12] MEDS: INSULIN REGULAR 100 UNIT/ML SUBCUT SCH ×4 (16:31→22:10)
[2018-09-12] MEDS: DONEPEZIL 10 MG TABLET PO SCH (22:00)
[2018-09-12] MEDS: ENOXAPARIN 40 MG/0.4 ML SYRINGE SUBCUT SCH (22:00)
[2018-09-12] MEDS: PRAMIPEXOLE 1 MG TABLET PO SCH (22:00)
[2018-09-12] MEDS: LACTULOSE 20 GM/30 ML UDCUP PO SCH (22:00)
[2018-09-12] MEDS: INSULIN GLARGINE 100 UNIT/ML SUBCUT SCH (22:10)
[2018-09-13 05:41] LABS: Basophils % 0.6 % (0.0-0.8); Eosinophils # 0.2 10*3/uL (0.0-0.87); Eosinophils % 2.3 % (0.00-10.9); Hematocrit 29.6 VOL% (42.0-52.0); Hemoglobin 9.3 GM/DL (14.0-18.0); Immature Granulocytes % 0.6 %; Immature Granulocytes Absolute 0.04 #; Lymphocytes # 1.1 10*3/uL (1.4-4.0); Lymphocytes % 15.7 % (21.2-54.2); Mean Corpuscular HGB Conc 31.4 GM/DL (32-36); Mean Corpuscular Hemoglobin 30 PG (27-34); Mean Corpuscular Volume 95.2 FL (87-102); Mean Platelet Volume 11.7 FL (9.6-12.0); Monocytes # 0.7 10*3/uL (0.11-0.8); Monocytes % 10.1 % (1.7-12.7); Neutrophils # 4.9 10*3/uL (1.4-7.4); Neutrophils % 70.7 % (38.7-73.9); Platelet Count 308 T/CUMM (130-400); Red Blood Count 3.11 MC/CUMM (3.8-5.5)
[2018-09-13 05:45] LABS: Calcium 8.6 MG/DL (8.5-10.1); Osmolality,Calculated 289.2 MOS/KG (273-304); Potassium 4.9 MMOL/L (3.5-5.1)
[2018-09-13 05:46] LABS: Calcium 8.5 MG/DL (8.5-10.1); Osmolality,Calculated 285.5 MOS/KG (273-304); Potassium 4.9 MMOL/L (3.5-5.1)
[2018-09-13] MEDS: LEVOTHYROXINE 175 MCG TABLET PO SCH (05:50)
[2018-09-13] MEDS: ceFAZolin 500 MG in SYRINGE 1 EACH IV SCH ×2 (05:50→15:51)
[2018-09-13] MEDS: CHOLECALCIFEROL 1,000 UNIT TABLET PO SCH (09:04)
[2018-09-13] MEDS: ATORVASTATIN 40 MG TABLET PO SCH (09:05)
[2018-09-13] MEDS: FERROUS SULFATE 325 MG TABLET PO SCH ×2 (09:05→21:45)
[2018-09-13] MEDS: FUROSEMIDE 40 MG/4 ML VIAL IV SCH (09:05)
[2018-09-13] MEDS: ASPIRIN EC 81 MG TABLET PO SCH (09:05)
[2018-09-13] MEDS: DOCUSATE SODIUM 100 MG CAPSULE PO SCH ×2 (09:05→21:45)
[2018-09-13] MEDS: INSULIN REGULAR 100 UNIT/ML SUBCUT SCH ×4 (09:05→21:45)
[2018-09-13] MEDS: FOLIC ACID 1 MG TABLET PO SCH (09:05)
[2018-09-13] MEDS: POLYETHYLENE GLYCOL POWDER 17 GM PACK PO SCH (09:06)
[2018-09-13] MEDS: LACTULOSE 20 GM/30 ML UDCUP PO SCH ×2 (09:06→21:45)
[2018-09-13] MEDS: PANTOPRAZOLE 40 MG TABLET PO SCH ×2 (09:06→21:45)
[2018-09-13] MEDS: CALCITONIN NASAL SPRAY 3.7 ML BOTTLE ONE NARE SCH (09:07)
[2018-09-13] MEDS: ACETAMINOPHEN 325 MG TABLET PO PRN (16:00)
[2018-09-13] MEDS ORDERED: INSULIN GLARGINE 100 UNIT/ML SUBCUT SCH (16:23)
[2018-09-13] MEDS: INSULIN GLARGINE 100 UNIT/ML SUBCUT SCH (17:04)
[2018-09-13] MEDS: ENOXAPARIN 40 MG/0.4 ML SYRINGE SUBCUT SCH (21:44)
[2018-09-13] MEDS: PRAMIPEXOLE 1 MG TABLET PO SCH (21:44)
[2018-09-13] MEDS: DONEPEZIL 10 MG TABLET PO SCH (21:45)
[2018-09-13] MEDS: METOPROLOL TARTRATE 25 MG TABLET PO SCH (21:46)
[2018-09-14 05:43] LABS: Basophils % 0.4 % (0.0-0.8); Eosinophils # 0.2 10*3/uL (0.0-0.87); Hemoglobin 9.7 GM/DL (14.0-18.0); Immature Granulocytes % 0.6 %; Immature Granulocytes Absolute 0.05 #; Lymphocytes # 2.4 10*3/uL (1.4-4.0); Lymphocytes % 26.4 % (21.2-54.2); Mean Corpuscular HGB Conc 31.3 GM/DL (32-36); Mean Corpuscular Hemoglobin 30 PG (27-34); Mean Corpuscular Volume 95.1 FL (87-102); Mean Platelet Volume 11.3 FL (9.6-12.0); Monocytes # 1.1 10*3/uL (0.11-0.8); Monocytes % 12.3 % (1.7-12.7); Neutrophils # 5.3 10*3/uL (1.4-7.4); Neutrophils % 58.3 % (38.7-73.9); Platelet Count 369 T/CUMM (130-400); Red Blood Count 3.26 MC/CUMM (3.8-5.5); Red Cell Distribution Width 14.7 % (9.3-17.3); White Blood Count 9.1 T/CUMM (4-12)
[2018-09-14 05:55] LABS: Calcium 8.9 MG/DL (8.5-10.1); Osmolality,Calculated 276.5 MOS/KG (273-304)
[2018-09-14] MEDS: LEVOTHYROXINE 175 MCG TABLET PO SCH (06:10)
[2018-09-14] MEDS: DEXTROSE 50% 25 GM/50 ML SYRINGE IV PRN (06:10)
[2018-09-14] MEDS: ASPIRIN EC 81 MG TABLET PO SCH (08:54)
[2018-09-14] MEDS: FERROUS SULFATE 325 MG TABLET PO SCH (08:54)
[2018-09-14] MEDS: CALCITONIN NASAL SPRAY 3.7 ML BOTTLE ONE NARE SCH (08:54)
[2018-09-14] MEDS: CHOLECALCIFEROL 1,000 UNIT TABLET PO SCH (08:54)
[2018-09-14] MEDS: METOPROLOL TARTRATE 25 MG TABLET PO SCH (08:54)
[2018-09-14] MEDS: ATORVASTATIN 40 MG TABLET PO SCH (08:54)
[2018-09-14] MEDS: FOLIC ACID 1 MG TABLET PO SCH (08:54)
[2018-09-14] MEDS: PANTOPRAZOLE 40 MG TABLET PO SCH (08:54)
[2018-09-14] MEDS: LACTULOSE 20 GM/30 ML UDCUP PO SCH (08:55)
[2018-09-14] MEDS: fentaNYL 25 MCG/HR PATCH TRANSDERM SCH (08:55)
[2018-09-14] MEDS: DOCUSATE SODIUM 100 MG CAPSULE PO SCH (08:55)
[2018-09-14] MEDS: INSULIN REGULAR 100 UNIT/ML SUBCUT SCH ×2 (08:56→11:47)
[2018-09-14] MEDS: POLYETHYLENE GLYCOL POWDER 17 GM PACK PO SCH (08:56)
[2018-09-14] MEDS: INSULIN GLARGINE 100 UNIT/ML SUBCUT SCH (08:57)
[2018-09-14] MEDS ORDERED: FUROSEMIDE 40 MG TABLET PO SCH (09:00)
[2018-09-14 12:15] VITALS: BP 121/64
== END 2018-09-14 14:31 | disposition home health service (06) | DRG 291 ==
LOC: EDBD → EDUNIT# → N.ED 16:45 → SUATTDRO 19:46 → N.EDINP 19:46 → N.TELEN 21:26
PROVIDERS: ADMIT Hospitalist; ATTEND Internal Medicine

== ENCOUNTER 2018-09-15 14:08 | Inpatient (IN) ==
[2018-09-15] MEDS ORDERED: ONDANSETRON 4 MG/2 ML VIAL ONE (15:40)
[2018-09-15] MEDS ORDERED: HYDROmorphone 2 MG/1 ML VIAL IV STA (15:41)
[2018-09-15] MEDS ORDERED: HYDROmorphone 2 MG/1 ML VIAL ONE (15:41)
[2018-09-15] MEDS ORDERED: ONDANSETRON 4 MG/2 ML VIAL IV STA (15:41)
[2018-09-15] MEDS ORDERED: TROLAMINE SALICYLATE 10% CREAM 85 GM TUBE TOP PRN (16:14)
[2018-09-15] MEDS ORDERED: CYCLOBENZAPRINE 10 MG TABLET PO PRN (16:14)
[2018-09-15 16:19] LABS: Basophils # 0.1 10*3/uL (0.0-0.2); Basophils % 0.5 % (0.0-0.8); Eosinophils # 0.1 10*3/uL (0.0-0.87); Hematocrit 34.7 VOL% (42.0-52.0); Immature Granulocytes % 0.8 %; Immature Granulocytes Absolute 0.09 #; Lymphocytes # 0.9 10*3/uL (1.4-4.0); Lymphocytes % 8.2 % (21.2-54.2); Mean Corpuscular HGB Conc 31.7 GM/DL (32-36); Mean Corpuscular Hemoglobin 30 PG (27-34); Mean Corpuscular Volume 95.3 FL (87-102); Mean Platelet Volume 11.6 FL (9.6-12.0); Monocytes % 8.9 % (1.7-12.7); Neutrophils # 8.8 10*3/uL (1.4-7.4); Neutrophils % 80.6 % (38.7-73.9); Platelet Count 392 T/CUMM (130-400); Red Blood Count 3.64 MC/CUMM (3.8-5.5); Red Cell Distribution Width 14.9 % (9.3-17.3); White Blood Count 10.9 T/CUMM (4-12)
[2018-09-15 16:35] LABS: Calcium 9.1 MG/DL (8.5-10.1); Osmolality,Calculated 278.1 MOS/KG (273-304); Potassium 4.6 MMOL/L (3.5-5.1)
[2018-09-15] MEDS ORDERED: GLUCAGON 1 MG VIAL IM PRN (16:40)
[2018-09-15] MEDS ORDERED: ONDANSETRON 4 MG/2 ML VIAL IV PRN (16:40)
[2018-09-15] MEDS ORDERED: MORPHINE 4 MG/1 ML VIAL IV PRN (17:23)
[2018-09-15] MEDS: METOPROLOL TARTRATE 25 MG TABLET PO SCH (20:24)
[2018-09-15] MEDS: DONEPEZIL 10 MG TABLET PO SCH (20:24)
[2018-09-15] MEDS: PANTOPRAZOLE 40 MG TABLET PO SCH (20:24)
[2018-09-15] MEDS: FERROUS SULFATE 325 MG TABLET PO SCH (20:24)
[2018-09-15] MEDS: PRAMIPEXOLE 1 MG TABLET PO SCH (20:24)
[2018-09-15] MEDS: DOCUSATE SODIUM 100 MG CAPSULE PO SCH (20:24)
[2018-09-15] MEDS: cephALEXin 500 MG CAPSULE PO SCH (21:14)
[2018-09-15] MEDS: INSULIN REGULAR 100 UNIT/ML SUBCUT SCH (23:37)
[2018-09-16] MEDS: MORPHINE 4 MG/1 ML VIAL IV PRN (02:58)
[2018-09-16 05:08] LABS: Basophils % 0.4 % (0.0-0.8); Eosinophils # 0.1 10*3/uL (0.0-0.87); Eosinophils % 1.4 % (0.00-10.9); Hematocrit 31.7 VOL% (42.0-52.0); Hemoglobin 10.2 GM/DL (14.0-18.0); Immature Granulocytes % 0.6 %; Immature Granulocytes Absolute 0.06 #; Lymphocytes # 1.1 10*3/uL (1.4-4.0); Lymphocytes % 11.4 % (21.2-54.2); Mean Corpuscular HGB Conc 32.2 GM/DL (32-36); Mean Corpuscular Hemoglobin 30 PG (27-34); Mean Corpuscular Volume 94.3 FL (87-102); Mean Platelet Volume 10.9 FL (9.6-12.0); Monocytes # 0.9 10*3/uL (0.11-0.8); Monocytes % 9.3 % (1.7-12.7); Neutrophils # 7.5 10*3/uL (1.4-7.4); Neutrophils % 76.9 % (38.7-73.9); Platelet Count 330 T/CUMM (130-400); Red Blood Count 3.36 MC/CUMM (3.8-5.5); Red Cell Distribution Width 15.1 % (9.3-17.3); White Blood Count 9.8 T/CUMM (4-12)
[2018-09-16 05:33] LABS: Calcium 8.5 MG/DL (8.5-10.1); Osmolality,Calculated 277.7 MOS/KG (273-304)
[2018-09-16] MEDS ORDERED: CLINDAMYCIN INJ 900 MG in PREMIX 1 EACH IV ONE (06:00)
[2018-09-16] MEDS: LEVOTHYROXINE 175 MCG TABLET PO SCH (06:24)
[2018-09-16] MEDS: cephALEXin 500 MG CAPSULE PO SCH ×3 (06:24→22:21)
[2018-09-16] MEDS: DEXTROSE 50% 25 GM/50 ML SYRINGE IV PRN (06:43)
[2018-09-16] MEDS: LACTATED RINGERS 1,000 ML IV SCH ×2 (07:10→13:49)
[2018-09-16] MEDS: INSULIN REGULAR 100 UNIT/ML SUBCUT SCH ×4 (07:30→20:56)
[2018-09-16] MEDS ORDERED: TRANEXAMIC ACID 1,000 MG/10 ML VIAL ONE (08:17)
[2018-09-16] MEDS ORDERED: TEMAZEPAM 7.5 MG CAPSULE PO PRN (08:44)
[2018-09-16] MEDS ORDERED: MAGNESIUM HYDROXIDE SUSP 30 ML UDCUP PO PRN (08:44)
[2018-09-16] MEDS ORDERED: diphenhydrAMINE CAP 25 MG CAPSULE PO PRN (08:44)
[2018-09-16] MEDS ORDERED: PROMETHAZINE 25 MG/1 ML VIAL IM PRN (08:44)
[2018-09-16] MEDS ORDERED: BISACODYL 10 MG SUPP RECTAL PRN (08:44)
[2018-09-16] MEDS: ASPIRIN EC 81 MG TABLET PO SCH (09:00)
[2018-09-16] MEDS: ATORVASTATIN 40 MG TABLET PO SCH (09:00)
[2018-09-16] MEDS ORDERED: CYANOCOBALAMIN 1000 MCG/1 ML VIAL IM SCH (09:00)
[2018-09-16] MEDS: CHOLECALCIFEROL 1,000 UNIT TABLET PO SCH (09:00)
[2018-09-16] MEDS: METOPROLOL TARTRATE 25 MG TABLET PO SCH ×2 (09:00→20:57)
[2018-09-16] MEDS: FERROUS SULFATE 325 MG TABLET PO SCH ×2 (09:00→20:57)
[2018-09-16] MEDS: PANTOPRAZOLE 40 MG TABLET PO SCH ×2 (09:00→20:57)
[2018-09-16] MEDS: CALCITONIN NASAL SPRAY 3.7 ML BOTTLE ONE NARE SCH (09:00)
[2018-09-16] MEDS: DOCUSATE SODIUM 100 MG CAPSULE PO SCH ×4 (09:00→20:58)
[2018-09-16] MEDS: INSULIN GLARGINE 100 UNIT/ML SUBCUT SCH (09:00)
[2018-09-16] MEDS: MEMANTINE 10 MG TABLET PO SCH ×2 (09:00→20:57)
[2018-09-16] MEDS: FOLIC ACID 1 MG TABLET PO SCH (09:00)
[2018-09-16] MEDS: FUROSEMIDE 40 MG TABLET PO SCH (09:00)
[2018-09-16] MEDS: POLYETHYLENE GLYCOL POWDER 17 GM PACK PO SCH (09:00)
[2018-09-16] MEDS ORDERED: PHENYLEPHRINE DRIP 20 MG/250 ML PREMIX IV ONE (09:10)
[2018-09-16] MEDS ORDERED: fentaNYL 100 MCG/2 ML VIAL ONE (09:10)
[2018-09-16] MEDS ORDERED: SEVOFLURANE 1 UNIT/15 MINUTE INH ONE (09:10)
[2018-09-16] MEDS ORDERED: SUCCINYLCHOLINE 200 MG/10 ML VIAL ONE (09:11)
[2018-09-16] MEDS ORDERED: ETOMIDATE 40 MG/20 ML VIAL IV ONE (09:11)
[2018-09-16] MEDS ORDERED: PHENYLEPHRINE 1 MG/10 ML SYRINGE IV ONE (09:11)
[2018-09-16] MEDS ORDERED: ACETAMINOPHEN 1,000 MG/100 ML VIAL IV ONE (09:11)
[2018-09-16] MEDS ORDERED: ONDANSETRON 4 MG/2 ML VIAL ONE (09:31)
[2018-09-16] MEDS ORDERED: MORPHINE 10 MG/1 ML VIAL ONE (09:31)
[2018-09-16] MEDS ORDERED: MORPHINE 10 MG/1 ML VIAL IV PRN (09:35)
[2018-09-16] MEDS ORDERED: ONDANSETRON 4 MG/2 ML VIAL IV PRN (09:35)
[2018-09-16] MEDS ORDERED: ALBUMIN 5% 12.5 GM/250 ML VIAL IV ONE (10:21)
[2018-09-16] MEDS ORDERED: ALBUMIN 25% 12.5 GM in PREMIX 1 EACH IV ONE (10:23)
[2018-09-16] MEDS ORDERED: TUBERCULIN SKIN TEST 0.1 ML SYRINGE INTRADERM ONE (11:37)
[2018-09-16] MEDS: CLINDAMYCIN INJ 900 MG in PREMIX 1 EACH IV SCH ×2 (17:03→22:21)
[2018-09-16] MEDS: fentaNYL 25 MCG/HR PATCH TRANSDERM SCH (17:49)
[2018-09-16] MEDS: ENOXAPARIN 40 MG/0.4 ML SYRINGE SUBCUT SCH (20:56)
[2018-09-16] MEDS: PRAMIPEXOLE 1 MG TABLET PO SCH (20:57)
[2018-09-16] MEDS: DONEPEZIL 10 MG TABLET PO SCH (20:57)
[2018-09-17 05:22] LABS: Basophils % 0.3 % (0.0-0.8); Eosinophils % 0.4 % (0.00-10.9); Hematocrit 26.8 VOL% (42.0-52.0); Hemoglobin 8.3 GM/DL (14.0-18.0); Immature Granulocytes % 0.8 %; Immature Granulocytes Absolute 0.08 #; Lymphocytes # 0.8 10*3/uL (1.4-4.0); Lymphocytes % 7.9 % (21.2-54.2); Mean Corpuscular Hemoglobin 30 PG (27-34); Mean Corpuscular Volume 97.8 FL (87-102); Mean Platelet Volume 11.2 FL (9.6-12.0); Monocytes # 0.9 10*3/uL (0.11-0.8); Monocytes % 8.9 % (1.7-12.7); Neutrophils % 81.7 % (38.7-73.9); Platelet Count 255 T/CUMM (130-400); Red Blood Count 2.74 MC/CUMM (3.8-5.5); Red Cell Distribution Width 15.1 % (9.3-17.3); White Blood Count 9.8 T/CUMM (4-12)
[2018-09-17] MEDS: LACTATED RINGERS 1,000 ML IV SCH ×2 (05:35→12:57)
[2018-09-17] MEDS: LEVOTHYROXINE 175 MCG TABLET PO SCH (05:35)
[2018-09-17] MEDS: cephALEXin 500 MG CAPSULE PO SCH ×3 (05:35→21:26)
[2018-09-17 05:45] LABS: Potassium 4.5 MMOL/L (3.5-5.1)
[2018-09-17] MEDS: INSULIN REGULAR 100 UNIT/ML SUBCUT SCH ×4 (09:13→21:25)
[2018-09-17] MEDS: INSULIN GLARGINE 100 UNIT/ML SUBCUT SCH (09:14)
[2018-09-17] MEDS: ASPIRIN EC 81 MG TABLET PO SCH (09:17)
[2018-09-17] MEDS: DOCUSATE SODIUM 100 MG CAPSULE PO SCH ×4 (09:17→21:26)
[2018-09-17] MEDS: FERROUS SULFATE 325 MG TABLET PO SCH ×2 (09:17→21:26)
[2018-09-17] MEDS: ATORVASTATIN 40 MG TABLET PO SCH (09:18)
[2018-09-17] MEDS: FOLIC ACID 1 MG TABLET PO SCH (09:18)
[2018-09-17] MEDS: METOPROLOL TARTRATE 25 MG TABLET PO SCH ×2 (09:18→21:26)
[2018-09-17] MEDS: FUROSEMIDE 40 MG TABLET PO SCH (09:18)
[2018-09-17] MEDS: MEMANTINE 10 MG TABLET PO SCH ×2 (09:19→21:25)
[2018-09-17] MEDS: POLYETHYLENE GLYCOL POWDER 17 GM PACK PO SCH (09:19)
[2018-09-17] MEDS: CHOLECALCIFEROL 1,000 UNIT TABLET PO SCH (09:19)
[2018-09-17] MEDS: PANTOPRAZOLE 40 MG TABLET PO SCH ×2 (09:19→21:25)
[2018-09-17] MEDS: CALCITONIN NASAL SPRAY 3.7 ML BOTTLE ONE NARE SCH (12:51)
[2018-09-17] MEDS: MORPHINE 4 MG/1 ML VIAL IV PRN (17:58)
[2018-09-17] MEDS: ENOXAPARIN 40 MG/0.4 ML SYRINGE SUBCUT SCH (21:25)
[2018-09-17] MEDS: DONEPEZIL 10 MG TABLET PO SCH (21:26)
[2018-09-17] MEDS: PRAMIPEXOLE 1 MG TABLET PO SCH (21:26)
[2018-09-18] MEDS: LACTATED RINGERS 1,000 ML IV SCH ×3 (02:50→23:25)
[2018-09-18] MEDS: LEVOTHYROXINE 175 MCG TABLET PO SCH (05:44)
[2018-09-18] MEDS: cephALEXin 500 MG CAPSULE PO SCH ×3 (05:45→22:00)
[2018-09-18 05:48] LABS: Basophils % 0.2 % (0.0-0.8); Eosinophils # 0.1 10*3/uL (0.0-0.87); Eosinophils % 1.2 % (0.00-10.9); Hematocrit 26.1 VOL% (42.0-52.0); Hemoglobin 8.1 GM/DL (14.0-18.0); Immature Granulocytes % 0.6 %; Immature Granulocytes Absolute 0.06 #; Lymphocytes # 1.2 10*3/uL (1.4-4.0); Lymphocytes % 12.5 % (21.2-54.2); Mean Corpuscular Hemoglobin 30 PG (27-34); Mean Corpuscular Volume 96.3 FL (87-102); Mean Platelet Volume 10.8 FL (9.6-12.0); Monocytes % 10.2 % (1.7-12.7); Neutrophils # 7.3 10*3/uL (1.4-7.4); Neutrophils % 75.3 % (38.7-73.9); Platelet Count 278 T/CUMM (130-400); Red Blood Count 2.71 MC/CUMM (3.8-5.5); Red Cell Distribution Width 15.2 % (9.3-17.3); White Blood Count 9.7 T/CUMM (4-12)
[2018-09-18] MEDS: DEXTROSE 50% 25 GM/50 ML SYRINGE IV PRN (08:53)
[2018-09-18] MEDS: FUROSEMIDE 40 MG TABLET PO SCH (08:56)
[2018-09-18] MEDS: FERROUS SULFATE 325 MG TABLET PO SCH ×2 (08:56→20:48)
[2018-09-18] MEDS: DOCUSATE SODIUM 100 MG CAPSULE PO SCH ×4 (08:56→20:50)
[2018-09-18] MEDS: FOLIC ACID 1 MG TABLET PO SCH (08:56)
[2018-09-18] MEDS: ASPIRIN EC 81 MG TABLET PO SCH (08:56)
[2018-09-18] MEDS: POLYETHYLENE GLYCOL POWDER 17 GM PACK PO SCH (08:57)
[2018-09-18] MEDS: METOPROLOL TARTRATE 25 MG TABLET PO SCH ×2 (08:57→20:48)
[2018-09-18] MEDS: PANTOPRAZOLE 40 MG TABLET PO SCH ×2 (08:57→20:48)
[2018-09-18] MEDS: ATORVASTATIN 40 MG TABLET PO SCH (08:57)
[2018-09-18] MEDS: MEMANTINE 10 MG TABLET PO SCH ×2 (08:57→20:48)
[2018-09-18] MEDS: CHOLECALCIFEROL 1,000 UNIT TABLET PO SCH (08:58)
[2018-09-18] MEDS: CALCITONIN NASAL SPRAY 3.7 ML BOTTLE ONE NARE SCH (09:06)
[2018-09-18] MEDS: INSULIN GLARGINE 100 UNIT/ML SUBCUT SCH ×2 (09:07→15:35)
[2018-09-18] MEDS: INSULIN REGULAR 100 UNIT/ML SUBCUT SCH ×4 (09:08→17:59)
[2018-09-18] MEDS: DONEPEZIL 10 MG TABLET PO SCH (20:48)
[2018-09-18] MEDS: PRAMIPEXOLE 1 MG TABLET PO SCH (20:48)
[2018-09-18] MEDS: ENOXAPARIN 40 MG/0.4 ML SYRINGE SUBCUT SCH (20:48)
[2018-09-19] MEDS: INSULIN REGULAR 100 UNIT/ML SUBCUT SCH ×5 (00:55→21:07)
[2018-09-19 04:39] LABS: Basophils % 0.4 % (0.0-0.8); Eosinophils # 0.2 10*3/uL (0.0-0.87); Eosinophils % 2.5 % (0.00-10.9); Hematocrit 24.8 VOL% (42.0-52.0); Hemoglobin 7.6 GM/DL (14.0-18.0); Immature Granulocytes % 0.7 %; Immature Granulocytes Absolute 0.05 #; Lymphocytes # 1.1 10*3/uL (1.4-4.0); Lymphocytes % 14.6 % (21.2-54.2); Mean Corpuscular HGB Conc 30.6 GM/DL (32-36); Mean Corpuscular Hemoglobin 30 PG (27-34); Mean Corpuscular Volume 96.9 FL (87-102); Mean Platelet Volume 11.3 FL (9.6-12.0); Monocytes % 12.4 % (1.7-12.7); Neutrophils # 5.3 10*3/uL (1.4-7.4); Neutrophils % 69.4 % (38.7-73.9); Platelet Count 292 T/CUMM (130-400); Red Blood Count 2.56 MC/CUMM (3.8-5.5); Red Cell Distribution Width 15.2 % (9.3-17.3); White Blood Count 7.7 T/CUMM (4-12)
[2018-09-19] MEDS: cephALEXin 500 MG CAPSULE PO SCH ×3 (05:56→21:06)
[2018-09-19] MEDS: LEVOTHYROXINE 175 MCG TABLET PO SCH (05:56)
[2018-09-19] MEDS: LACTATED RINGERS 1,000 ML IV SCH ×2 (06:35→16:59)
[2018-09-19] MEDS: DEXTROSE 50% 25 GM/50 ML SYRINGE IV PRN (08:00)
[2018-09-19] MEDS: ATORVASTATIN 40 MG TABLET PO SCH (09:34)
[2018-09-19] MEDS: CHOLECALCIFEROL 1,000 UNIT TABLET PO SCH (09:34)
[2018-09-19] MEDS: MEMANTINE 10 MG TABLET PO SCH ×2 (09:35→21:06)
[2018-09-19] MEDS: FOLIC ACID 1 MG TABLET PO SCH (09:35)
[2018-09-19] MEDS: ASPIRIN EC 81 MG TABLET PO SCH (09:35)
[2018-09-19] MEDS: FUROSEMIDE 40 MG TABLET PO SCH (09:35)
[2018-09-19] MEDS: METOPROLOL TARTRATE 25 MG TABLET PO SCH ×2 (09:35→21:06)
[2018-09-19] MEDS: FERROUS SULFATE 325 MG TABLET PO SCH ×2 (09:35→21:06)
[2018-09-19] MEDS: PANTOPRAZOLE 40 MG TABLET PO SCH ×2 (09:35→21:05)
[2018-09-19] MEDS: INSULIN GLARGINE 100 UNIT/ML SUBCUT SCH (09:36)
[2018-09-19] MEDS: POLYETHYLENE GLYCOL POWDER 17 GM PACK PO SCH (09:39)
[2018-09-19] MEDS: DOCUSATE SODIUM 100 MG CAPSULE PO SCH ×4 (09:39→21:06)
[2018-09-19] MEDS: CALCITONIN NASAL SPRAY 3.7 ML BOTTLE ONE NARE SCH (09:39)
[2018-09-19] MEDS: fentaNYL 25 MCG/HR PATCH TRANSDERM SCH (09:58)
[2018-09-19] MEDS ORDERED: SODIUM CHLORIDE 0.9% 1,000 ML IV PRN (10:33)
[2018-09-19] MEDS: PRAMIPEXOLE 1 MG TABLET PO SCH (21:05)
[2018-09-19] MEDS: DONEPEZIL 10 MG TABLET PO SCH (21:05)
[2018-09-19] MEDS: ENOXAPARIN 40 MG/0.4 ML SYRINGE SUBCUT SCH (21:06)
[2018-09-20 05:25] LABS: Basophils % 0.4 % (0.0-0.8); Eosinophils # 0.3 10*3/uL (0.0-0.87); Eosinophils % 2.8 % (0.00-10.9); Hematocrit 31.2 VOL% (42.0-52.0); Immature Granulocytes % 0.6 %; Immature Granulocytes Absolute 0.06 #; Lymphocytes # 1.3 10*3/uL (1.4-4.0); Lymphocytes % 13.5 % (21.2-54.2); Mean Corpuscular HGB Conc 31.4 GM/DL (32-36); Mean Corpuscular Hemoglobin 30 PG (27-34); Mean Corpuscular Volume 94.3 FL (87-102); Mean Platelet Volume 11.6 FL (9.6-12.0); Neutrophils % 72.7 % (38.7-73.9); Platelet Count 300 T/CUMM (130-400); Red Cell Distribution Width 15.1 % (9.3-17.3); White Blood Count 9.7 T/CUMM (4-12)
[2018-09-20] MEDS: LEVOTHYROXINE 175 MCG TABLET PO SCH (05:29)
[2018-09-20] MEDS: cephALEXin 500 MG CAPSULE PO SCH (05:30)
[2018-09-20 05:37] LABS: Red Blood Count 3.31 MC/CUMM (3.8-5.5)
[2018-09-20 05:38] LABS: Hemoglobin 9.8 GM/DL (14.0-18.0)
[2018-09-20] MEDS: INSULIN REGULAR 100 UNIT/ML SUBCUT SCH (08:30)
[2018-09-20] MEDS: INSULIN GLARGINE 100 UNIT/ML SUBCUT SCH (08:31)
[2018-09-20] MEDS: CHOLECALCIFEROL 1,000 UNIT TABLET PO SCH (08:32)
[2018-09-20] MEDS: POLYETHYLENE GLYCOL POWDER 17 GM PACK PO SCH (08:32)
[2018-09-20] MEDS: FOLIC ACID 1 MG TABLET PO SCH (08:32)
[2018-09-20] MEDS: DOCUSATE SODIUM 100 MG CAPSULE PO SCH ×2 (08:32→08:34)
[2018-09-20] MEDS: METOPROLOL TARTRATE 25 MG TABLET PO SCH (08:33)
[2018-09-20] MEDS: ATORVASTATIN 40 MG TABLET PO SCH (08:33)
[2018-09-20] MEDS: FERROUS SULFATE 325 MG TABLET PO SCH (08:33)
[2018-09-20] MEDS: FUROSEMIDE 40 MG TABLET PO SCH (08:33)
[2018-09-20] MEDS: MEMANTINE 10 MG TABLET PO SCH (08:33)
[2018-09-20] MEDS: PANTOPRAZOLE 40 MG TABLET PO SCH (08:33)
[2018-09-20] MEDS: ASPIRIN EC 81 MG TABLET PO SCH (08:33)
[2018-09-20] MEDS: CALCITONIN NASAL SPRAY 3.7 ML BOTTLE ONE NARE SCH (08:34)
[2018-09-20 12:13] VITALS: BP 120/67
== END 2018-09-20 15:00 | disposition swing bed (61) | DRG 470 ==
LOC: N.ED 14:08 → SUATTDRO 16:55 → N.EDINP 16:55 → N.3E 18:06
PROVIDERS: ADMIT Internal Medicine; ATTEND Internal Medicine

== ENCOUNTER 2018-10-05 12:23 | Inpatient (IN) ==
[2018-10-05] MEDS ORDERED: ALBUTEROL 2.5 MG/3 ML NEB RESP TX STA (13:11)
[2018-10-05 13:19] LABS: Basophils # 0.1 10*3/uL (0.0-0.2); Basophils % 0.4 % (0.0-0.8); Eosinophils # 0.1 10*3/uL (0.0-0.87); Eosinophils % 0.5 % (0.00-10.9); Hematocrit 36.3 VOL% (42.0-52.0); Hemoglobin 11.6 GM/DL (14.0-18.0); Immature Granulocytes % 0.5 %; Immature Granulocytes Absolute 0.08 #; Lymphocytes # 1.6 10*3/uL (1.4-4.0); Lymphocytes % 10.1 % (21.2-54.2); Mean Corpuscular Hemoglobin 30 PG (27-34); Mean Platelet Volume 12.1 FL (9.6-12.0); Monocytes # 1.2 10*3/uL (0.11-0.8); Monocytes % 7.3 % (1.7-12.7); Neutrophils % 81.2 % (38.7-73.9); Platelet Count 435 T/CUMM (130-400); Red Blood Count 3.82 MC/CUMM (3.8-5.5); Red Cell Distribution Width 14.6 % (9.3-17.3)
[2018-10-05 13:24] LABS: PT Patient Result 10.7 SECS; Partial Thromboplastin Time 27.3 SECS (0-40)
[2018-10-05 13:32] LABS: Albumin 2.5 G/DL (3.4-5.0); Bilirubin,Total 0.4 MG/DL (0.2-1.0); Calcium 8.2 MG/DL (8.5-10.1); Osmolality,Calculated 284.4 MOS/KG (273-304); Potassium 5.2 MMOL/L (3.5-5.1); Total Protein 6.9 G/DL (6.4-8.3)
[2018-10-05] MEDS ORDERED: SODIUM CHLORIDE 0.9% 500 ML IV STA (13:51)
[2018-10-05] MEDS ORDERED: LEVOFLOXACIN INJ 500 MG in PREMIX 1 EACH IV STA (13:58)
[2018-10-05] MEDS ORDERED: DEXTROSE 50% 25 GM/50 ML VIAL IV PRN (15:42)
[2018-10-05] MEDS ORDERED: GLUCAGON 1 MG VIAL IM PRN (15:42)
[2018-10-05] MEDS ORDERED: ALBUTEROL/IPRATROPIUM 3 ML NEB RESP TX PRN (15:42)
[2018-10-05] MEDS ORDERED: ONDANSETRON 4 MG/2 ML VIAL IV PRN (15:42)
[2018-10-05] MEDS: ENOXAPARIN 40 MG/0.4 ML SYRINGE SUBCUT SCH (17:14)
[2018-10-05] MEDS: INSULIN LISPRO 100 UNIT/ML SUBCUT SCH ×2 (17:14→20:44)
[2018-10-05] MEDS: DONEPEZIL 10 MG TABLET PO SCH (20:43)
[2018-10-05] MEDS: guaiFENesin/DM ER 600-30 MG TABLET PO SCH (20:43)
[2018-10-05] MEDS: METOPROLOL TARTRATE 25 MG TABLET PO SCH (20:43)
[2018-10-05] MEDS: ACETAMINOPHEN 325 MG TABLET PO PRN (21:09)
[2018-10-06] MEDS: ACETAMINOPHEN 325 MG TABLET PO PRN ×3 (01:08→17:51)
[2018-10-06] MEDS: MORPHINE 4 MG/1 ML VIAL IV PRN ×2 (04:04→19:43)
[2018-10-06 05:13] LABS: Basophils # 0.1 10*3/uL (0.0-0.2); Basophils % 0.6 % (0.0-0.8); Eosinophils # 0.2 10*3/uL (0.0-0.87); Eosinophils % 1.9 % (0.00-10.9); Hematocrit 32.7 VOL% (42.0-52.0); Hemoglobin 9.9 GM/DL (14.0-18.0); Immature Granulocytes % 0.6 %; Immature Granulocytes Absolute 0.05 #; Lymphocytes # 1.7 10*3/uL (1.4-4.0); Lymphocytes % 20.7 % (21.2-54.2); Mean Corpuscular HGB Conc 30.3 GM/DL (32-36); Mean Corpuscular Hemoglobin 29 PG (27-34); Mean Corpuscular Volume 96.7 FL (87-102); Mean Platelet Volume 11.9 FL (9.6-12.0); Monocytes # 0.8 10*3/uL (0.11-0.8); Monocytes % 10.3 % (1.7-12.7); Neutrophils # 5.3 10*3/uL (1.4-7.4); Neutrophils % 65.9 % (38.7-73.9); Platelet Count 330 T/CUMM (130-400); Red Blood Count 3.38 MC/CUMM (3.8-5.5); Red Cell Distribution Width 14.4 % (9.3-17.3)
[2018-10-06 05:40] LABS: Calcium 8.3 MG/DL (8.5-10.1); Osmolality,Calculated 288.4 MOS/KG (273-304); Potassium 4.5 MMOL/L (3.5-5.1); Thyroid Stimulating Hormone 0.778 uIU/ml (0.358-3.74)
[2018-10-06] MEDS: LEVOTHYROXINE 175 MCG TABLET PO SCH (06:15)
[2018-10-06] MEDS: FUROSEMIDE 40 MG TABLET PO SCH (06:15)
[2018-10-06] MEDS: ASPIRIN EC 81 MG TABLET PO SCH (08:22)
[2018-10-06] MEDS: MEMANTINE 10 MG TABLET PO SCH ×2 (08:22→20:18)
[2018-10-06] MEDS: PANTOPRAZOLE 40 MG TABLET PO SCH (08:22)
[2018-10-06] MEDS: METOPROLOL TARTRATE 25 MG TABLET PO SCH ×2 (08:22→20:17)
[2018-10-06] MEDS: INSULIN LISPRO 100 UNIT/ML SUBCUT SCH ×4 (08:26→20:18)
[2018-10-06] MEDS: ATORVASTATIN 40 MG TABLET PO SCH (08:44)
[2018-10-06] MEDS: guaiFENesin/DM ER 600-30 MG TABLET PO SCH ×2 (08:44→20:18)
[2018-10-06] MEDS: ENOXAPARIN 40 MG/0.4 ML SYRINGE SUBCUT SCH (17:48)
[2018-10-06] MEDS: DONEPEZIL 10 MG TABLET PO SCH (20:17)
[2018-10-07] MEDS: FUROSEMIDE 40 MG TABLET PO SCH (05:12)
[2018-10-07] MEDS: LEVOTHYROXINE 175 MCG TABLET PO SCH (05:12)
[2018-10-07] MEDS: MORPHINE 4 MG/1 ML VIAL IV PRN (05:13)
[2018-10-07 06:48] LABS: Basophils # 0.1 10*3/uL (0.0-0.2); Basophils % 0.8 % (0.0-0.8); Eosinophils # 0.2 10*3/uL (0.0-0.87); Eosinophils % 1.8 % (0.00-10.9); Hematocrit 31.4 VOL% (42.0-52.0); Hemoglobin 9.9 GM/DL (14.0-18.0); Immature Granulocytes % 0.6 %; Immature Granulocytes Absolute 0.05 #; Lymphocytes # 1.5 10*3/uL (1.4-4.0); Lymphocytes % 16.1 % (21.2-54.2); Mean Corpuscular HGB Conc 31.5 GM/DL (32-36); Mean Corpuscular Hemoglobin 30 PG (27-34); Mean Corpuscular Volume 93.7 FL (87-102); Monocytes % 10.5 % (1.7-12.7); Neutrophils # 6.4 10*3/uL (1.4-7.4); Neutrophils % 70.2 % (38.7-73.9); Platelet Count 348 T/CUMM (130-400); Red Blood Count 3.35 MC/CUMM (3.8-5.5)
[2018-10-07 06:58] LABS: Calcium 9.1 MG/DL (8.5-10.1); Osmolality,Calculated 290.1 MOS/KG (273-304); Potassium 4.6 MMOL/L (3.5-5.1)
[2018-10-07] MEDS ORDERED: LEVOFLOXACIN INJ 750 MG in PREMIX 1 EACH IV SCH (09:00)
[2018-10-07] MEDS: guaiFENesin/DM ER 600-30 MG TABLET PO SCH (09:22)
[2018-10-07] MEDS: ACETAMINOPHEN 325 MG TABLET PO PRN (09:22)
[2018-10-07] MEDS: INSULIN LISPRO 100 UNIT/ML SUBCUT SCH ×2 (09:22→12:36)
[2018-10-07] MEDS: ATORVASTATIN 40 MG TABLET PO SCH (09:24)
[2018-10-07] MEDS: PANTOPRAZOLE 40 MG TABLET PO SCH (09:24)
[2018-10-07] MEDS: MEMANTINE 10 MG TABLET PO SCH (09:24)
[2018-10-07] MEDS: METOPROLOL TARTRATE 25 MG TABLET PO SCH (09:24)
[2018-10-07] MEDS: ASPIRIN EC 81 MG TABLET PO SCH (09:24)
[2018-10-07 12:58] VITALS: BP 101/57
== END 2018-10-07 13:35 | disposition swing bed (61) | DRG 194 ==
LOC: EDUNIT# → N.ED 12:23 → N.EDINP 14:02 → N.5E 16:13
PROVIDERS: ADMIT Internal Medicine Geriatric Medicine; ATTEND Internal Medicine Geriatric Medicine

== ENCOUNTER 2018-10-31 09:14 | Inpatient (IN) ==
[2018-10-31] MEDS ORDERED: CLINDAMYCIN INJ 600 MG in PREMIX 1 EACH IV STA (09:59)
[2018-10-31] MEDS ORDERED: ONDANSETRON 4 MG/2 ML VIAL IV STA (09:59)
[2018-10-31] MEDS ORDERED: DIPH/TET/ACEL PERT BOOSTER VACCINE 0.5 ML VIAL IM ONE (09:59)
[2018-10-31] MEDS ORDERED: SODIUM CHLORIDE 0.9% 500 ML IV STA (09:59)
[2018-10-31] MEDS ORDERED: MORPHINE 4 MG/1 ML VIAL IV STA (09:59)
[2018-10-31 11:13] LABS: Basophils % 0.3 % (0.0-0.8); Eosinophils # 0.1 10*3/uL (0.0-0.87); Eosinophils % 0.5 % (0.00-10.9); Hematocrit 32.6 VOL% (42.0-52.0); Hemoglobin 10.3 GM/DL (14.0-18.0); Immature Granulocytes % 0.7 %; Immature Granulocytes Absolute 0.09 #; Lymphocytes # 1.2 10*3/uL (1.4-4.0); Lymphocytes % 8.7 % (21.2-54.2); Mean Corpuscular HGB Conc 31.6 GM/DL (32-36); Mean Corpuscular Volume 93.9 FL (87-102); Mean Platelet Volume 11.4 FL (9.6-12.0); Monocytes % 5.9 % (1.7-12.7); Neutrophils % 83.9 % (38.7-73.9); Platelet Count 284 T/CUMM (130-400); Red Blood Count 3.47 MC/CUMM (3.8-5.5); Red Cell Distribution Width 14.9 % (9.3-17.3); White Blood Count 13.4 T/CUMM (4-12)
[2018-10-31 11:21] LABS: PT Patient Result 10.4 SECS
[2018-10-31] MEDS ORDERED: MORPHINE 4 MG/1 ML VIAL IV PRN (11:27)
[2018-10-31] MEDS ORDERED: PROMETHAZINE 25 MG/1 ML VIAL IM PRN (11:27)
[2018-10-31] MEDS ORDERED: ONDANSETRON 4 MG/2 ML VIAL IV PRN (11:27)
[2018-10-31] MEDS ORDERED: ACETAMINOPHEN 325 MG TABLET PO PRN (11:27)
[2018-10-31 11:30] LABS: Albumin 2.7 G/DL (3.4-5.0); Bilirubin,Total 0.6 MG/DL (0.2-1.0); Calcium 8.6 MG/DL (8.5-10.1); Osmolality,Calculated 271.1 MOS/KG (273-304); Total Protein 6.4 G/DL (6.4-8.3)
[2018-10-31] MEDS ORDERED: INSULIN LISPRO 100 UNIT/ML SUBCUT SCH (11:30)
[2018-10-31] MEDS ORDERED: FUROSEMIDE 40 MG TABLET PO PRN (11:30)
[2018-10-31] MEDS ORDERED: PANTOPRAZOLE 40 MG TABLET PO SCH (11:30)
[2018-10-31] MEDS ORDERED: guaiFENesin/DM ER 600-30 MG TABLET PO PRN (11:30)
[2018-10-31 11:59] LABS: Thyroid Stimulating Hormone 1.49 uIU/ml (0.358-3.74)
[2018-10-31] MEDS ORDERED: GLUCAGON 1 MG VIAL IM PRN (13:02)
[2018-10-31] MEDS ORDERED: ALBUTEROL/IPRATROPIUM 3 ML NEB RESP TX PRN (14:23)
[2018-10-31 14:48] LABS: Apearance,Urine CLEAR (Clear); Bilirubin,Urine Negative (Negative); Blood, Urine Negative (Negative); Glucose,Urine (UA) Negative (Negative); Ketones,Urine Negative (Negative); Mucus,Urine Occasional /LPF (Occasional); Nitrite,Urine Negative (Negative); Protein,Urine Negative; RBC,Urine 2 /HPF (0-4); Squamous Epithelial Cell,Urine Occasional /HPF (0-10); Urine Color Yellow (Yellow); Urine Urobilinogen < 2.0 EU/DL (0.2-1.0); WBC,Urine <1 /HPF (0-6)
[2018-10-31] MEDS: ALBUTEROL/IPRATROPIUM 3 ML NEB RESP TX SCH ×3 (15:40→23:50)
[2018-10-31] MEDS: INSULIN REGULAR 100 UNIT/ML SUBCUT SCH ×2 (17:01→21:18)
[2018-10-31] MEDS: DONEPEZIL 10 MG TABLET PO SCH (21:15)
[2018-10-31] MEDS: FERROUS SULFATE 325 MG TABLET PO SCH (21:16)
[2018-10-31] MEDS: DOCUSATE SODIUM 100 MG CAPSULE PO SCH (21:16)
[2018-10-31] MEDS: METOPROLOL TARTRATE 25 MG TABLET PO SCH (21:16)
[2018-10-31] MEDS: PRAMIPEXOLE 1 MG TABLET PO SCH (21:16)
[2018-10-31] MEDS: PANTOPRAZOLE 40 MG TABLET PO SCH (21:16)
[2018-10-31] MEDS: INSULIN GLARGINE 100 UNIT/ML SUBCUT SCH (21:17)
[2018-10-31] MEDS: CARBOXYMETHYLCELLULOSE 1% OPH SOLN BOTH EYES SCH (21:44)
[2018-11-01] MEDS: ALBUTEROL/IPRATROPIUM 3 ML NEB RESP TX SCH ×7 (04:51→22:41)
[2018-11-01] MEDS: LEVOTHYROXINE 175 MCG TABLET PO SCH (05:53)
[2018-11-01 06:24] LABS: Basophils % 0.3 % (0.0-0.8); Eosinophils # 0.1 10*3/uL (0.0-0.87); Eosinophils % 0.7 % (0.00-10.9); Hematocrit 26.8 VOL% (42.0-52.0); Hemoglobin 8.7 GM/DL (14.0-18.0); Immature Granulocytes % 0.3 %; Immature Granulocytes Absolute 0.03 #; Lymphocytes # 1.5 10*3/uL (1.4-4.0); Lymphocytes % 16.9 % (21.2-54.2); Mean Corpuscular HGB Conc 32.5 GM/DL (32-36); Mean Corpuscular Volume 92.1 FL (87-102); Mean Platelet Volume 12.1 FL (9.6-12.0); Monocytes % 10.1 % (1.7-12.7); Neutrophils % 71.7 % (38.7-73.9); Platelet Count 269 T/CUMM (130-400); Red Blood Count 2.91 MC/CUMM (3.8-5.5); Red Cell Distribution Width 14.7 % (9.3-17.3)
[2018-11-01 06:52] LABS: Albumin 2.5 G/DL (3.4-5.0); Bilirubin,Total 0.9 MG/DL (0.2-1.0); Calcium 8.7 MG/DL (8.5-10.1); Osmolality,Calculated 266.2 MOS/KG (273-304); Total Protein 5.8 G/DL (6.4-8.3)
[2018-11-01] MEDS: INSULIN REGULAR 100 UNIT/ML SUBCUT SCH ×4 (07:32→21:18)
[2018-11-01] MEDS: DEXTROSE 50% 25 GM/50 ML SYRINGE IV PRN (07:39)
[2018-11-01] MEDS: METOPROLOL TARTRATE 25 MG TABLET PO SCH ×2 (08:12→21:16)
[2018-11-01] MEDS: FERROUS SULFATE 325 MG TABLET PO SCH ×2 (08:13→21:16)
[2018-11-01] MEDS: FOLIC ACID 1 MG TABLET PO SCH (08:13)
[2018-11-01] MEDS: DOCUSATE SODIUM 100 MG CAPSULE PO SCH ×2 (08:13→21:17)
[2018-11-01] MEDS: ASPIRIN EC 81 MG TABLET PO SCH (08:13)
[2018-11-01] MEDS: PANTOPRAZOLE 40 MG TABLET PO SCH ×2 (08:14→21:16)
[2018-11-01] MEDS: POLYETHYLENE GLYCOL POWDER 17 GM PACK PO SCH (08:14)
[2018-11-01] MEDS: CARBOXYMETHYLCELLULOSE 1% OPH SOLN BOTH EYES SCH ×2 (08:14→21:18)
[2018-11-01] MEDS: MEMANTINE 10 MG TABLET PO SCH ×2 (08:14→21:18)
[2018-11-01] MEDS: ATORVASTATIN 40 MG TABLET PO SCH (08:14)
[2018-11-01] MEDS: CHOLECALCIFEROL 1,000 UNIT TABLET PO SCH (08:15)
[2018-11-01] MEDS ORDERED: CYANOCOBALAMIN 1000 MCG/1 ML VIAL IM SCH (09:00)
[2018-11-01] MEDS ORDERED: CLINDAMYCIN INJ 50 ML IV ONE (11:46)
[2018-11-01] MEDS ORDERED: diphenhydrAMINE CAP 25 MG CAPSULE PO PRN (12:33)
[2018-11-01] MEDS ORDERED: BISACODYL 10 MG SUPP RECTAL PRN (12:33)
[2018-11-01] MEDS ORDERED: LACTULOSE 20 GM/30 ML UDCUP PO PRN (12:33)
[2018-11-01] MEDS ORDERED: MAGNESIUM HYDROXIDE SUSP 30 ML UDCUP PO PRN (12:33)
[2018-11-01] MEDS ORDERED: MORPHINE 4 MG/1 ML VIAL IV PRN ×2 (12:36→12:57)
[2018-11-01] MEDS ORDERED: PROPOFOL 200 MG/20 ML VIAL IV ONE (12:57)
[2018-11-01] MEDS ORDERED: ONDANSETRON 4 MG/2 ML VIAL ONE ×2 (12:57→13:12)
[2018-11-01] MEDS ORDERED: SEVOFLURANE 1 UNIT/15 MINUTE INH ONE (12:57)
[2018-11-01] MEDS ORDERED: ACETAMINOPHEN 1,000 MG/100 ML VIAL IV ONE (12:57)
[2018-11-01] MEDS ORDERED: PHENYLEPHRINE 1 MG/10 ML SYRINGE IV ONE (12:57)
[2018-11-01] MEDS ORDERED: fentaNYL 100 MCG/2 ML VIAL ONE (12:57)
[2018-11-01] MEDS ORDERED: ONDANSETRON 4 MG/2 ML VIAL IV PRN (13:04)
[2018-11-01] MEDS ORDERED: HYDROmorphone 2 MG/1 ML VIAL ONE (13:12)
[2018-11-01] MEDS: HYDROmorphone 2 MG/1 ML VIAL IV PRN ×2 (13:36→13:41)
[2018-11-01 15:28] LABS: Hematocrit 27.7 VOL% (42.0-52.0); Hemoglobin 8.9 GM/DL (14.0-18.0)
[2018-11-01] MEDS: CLINDAMYCIN INJ 900 MG in PREMIX 1 EACH IV SCH (18:09)
[2018-11-01] MEDS: PRAMIPEXOLE 1 MG TABLET PO SCH (21:16)
[2018-11-01] MEDS: DONEPEZIL 10 MG TABLET PO SCH (21:16)
[2018-11-01] MEDS: INSULIN GLARGINE 100 UNIT/ML SUBCUT SCH (21:18)
[2018-11-01] MEDS: LACTATED RINGERS 1,000 ML IV SCH (23:14)
[2018-11-02] MEDS: CLINDAMYCIN INJ 900 MG in PREMIX 1 EACH IV SCH (01:25)
[2018-11-02] MEDS: DEXTROSE 50% 25 GM/50 ML SYRINGE IV PRN (03:01)
[2018-11-02] MEDS: ALBUTEROL/IPRATROPIUM 3 ML NEB RESP TX SCH ×6 (03:11→23:24)
[2018-11-02 04:47] LABS: Basophils % 0.1 % (0.0-0.8); Eosinophils % 0.3 % (0.00-10.9); Hematocrit 24.3 VOL% (42.0-52.0); Hemoglobin 7.8 GM/DL (14.0-18.0); Immature Granulocytes % 0.7 %; Immature Granulocytes Absolute 0.06 #; Lymphocytes # 0.6 10*3/uL (1.4-4.0); Lymphocytes % 6.6 % (21.2-54.2); Mean Corpuscular HGB Conc 32.1 GM/DL (32-36); Mean Corpuscular Volume 94.9 FL (87-102); Mean Platelet Volume 11.5 FL (9.6-12.0); Neutrophils % 82.3 % (38.7-73.9); Platelet Count 230 T/CUMM (130-400); Red Blood Count 2.56 MC/CUMM (3.8-5.5); Red Cell Distribution Width 14.6 % (9.3-17.3)
[2018-11-02 05:03] LABS: Calcium 8.1 MG/DL (8.5-10.1); Osmolality,Calculated 263.7 MOS/KG (273-304)
[2018-11-02] MEDS: LEVOTHYROXINE 175 MCG TABLET PO SCH (06:37)
[2018-11-02] MEDS ORDERED: MAGNESIUM SULF RIDER 2 GM in PREMIX 1 EACH IV ONE (07:17)
[2018-11-02] MEDS: INSULIN REGULAR 100 UNIT/ML SUBCUT SCH ×4 (08:22→20:58)
[2018-11-02] MEDS: CHOLECALCIFEROL 1,000 UNIT TABLET PO SCH (08:24)
[2018-11-02] MEDS: MEMANTINE 10 MG TABLET PO SCH ×2 (08:24→20:26)
[2018-11-02] MEDS: ASPIRIN EC 81 MG TABLET PO SCH (08:24)
[2018-11-02] MEDS: DOCUSATE SODIUM 100 MG CAPSULE PO SCH ×2 (08:25→20:25)
[2018-11-02] MEDS: ATORVASTATIN 40 MG TABLET PO SCH (08:25)
[2018-11-02] MEDS: PANTOPRAZOLE 40 MG TABLET PO SCH ×2 (08:25→20:26)
[2018-11-02] MEDS: FOLIC ACID 1 MG TABLET PO SCH (08:25)
[2018-11-02] MEDS: FERROUS SULFATE 325 MG TABLET PO SCH ×2 (08:25→20:26)
[2018-11-02] MEDS: METOPROLOL TARTRATE 25 MG TABLET PO SCH ×2 (08:25→20:26)
[2018-11-02] MEDS: POLYETHYLENE GLYCOL POWDER 17 GM PACK PO SCH (08:26)
[2018-11-02] MEDS: CARBOXYMETHYLCELLULOSE 1% OPH SOLN BOTH EYES SCH ×2 (08:29→21:01)
[2018-11-02] MEDS ORDERED: SODIUM CHLORIDE 0.9% 1,000 ML IV PRN (08:40)
[2018-11-02] MEDS: LACTATED RINGERS 1,000 ML IV SCH (17:21)
[2018-11-02] MEDS: DEXTROSE 5% LACTATED RINGERS 1,000 ML IV SCH (19:15)
[2018-11-02] MEDS: DONEPEZIL 10 MG TABLET PO SCH (20:26)
[2018-11-02] MEDS: PRAMIPEXOLE 1 MG TABLET PO SCH (20:26)
[2018-11-02] MEDS: INSULIN GLARGINE 100 UNIT/ML SUBCUT SCH (20:59)
[2018-11-03] MEDS: DEXTROSE 50% 25 GM/50 ML SYRINGE IV PRN ×2 (01:44→06:03)
[2018-11-03] MEDS: ALBUTEROL/IPRATROPIUM 3 ML NEB RESP TX SCH ×6 (03:13→22:47)
[2018-11-03 05:32] LABS: Basophils % 0.2 % (0.0-0.8); Eosinophils # 0.2 10*3/uL (0.0-0.87); Eosinophils % 2.6 % (0.00-10.9); Hematocrit 29.3 VOL% (42.0-52.0); Hemoglobin 9.4 GM/DL (14.0-18.0); Immature Granulocytes % 0.6 %; Immature Granulocytes Absolute 0.05 #; Lymphocytes # 1.4 10*3/uL (1.4-4.0); Lymphocytes % 17.5 % (21.2-54.2); Mean Corpuscular HGB Conc 32.1 GM/DL (32-36); Mean Corpuscular Volume 90.2 FL (87-102); Mean Platelet Volume 11.4 FL (9.6-12.0); Monocytes % 10.3 % (1.7-12.7); Neutrophils % 68.8 % (38.7-73.9); Platelet Count 220 T/CUMM (130-400); Red Blood Count 3.25 MC/CUMM (3.8-5.5); Red Cell Distribution Width 16.4 % (9.3-17.3); White Blood Count 8.1 T/CUMM (4-12)
[2018-11-03 05:54] LABS: Calcium 8.4 MG/DL (8.5-10.1); Osmolality,Calculated 267.1 MOS/KG (273-304)
[2018-11-03] MEDS: LEVOTHYROXINE 175 MCG TABLET PO SCH (06:26)
[2018-11-03] MEDS: DEXTROSE 5% LACTATED RINGERS 1,000 ML IV SCH ×2 (07:28→21:09)
[2018-11-03] MEDS: INSULIN REGULAR 100 UNIT/ML SUBCUT SCH ×4 (08:05→21:11)
[2018-11-03] MEDS: CHOLECALCIFEROL 1,000 UNIT TABLET PO SCH (09:12)
[2018-11-03] MEDS: POLYETHYLENE GLYCOL POWDER 17 GM PACK PO SCH (09:12)
[2018-11-03] MEDS: DOCUSATE SODIUM 100 MG CAPSULE PO SCH ×2 (09:12→21:10)
[2018-11-03] MEDS: FOLIC ACID 1 MG TABLET PO SCH (09:13)
[2018-11-03] MEDS: FERROUS SULFATE 325 MG TABLET PO SCH ×2 (09:13→21:10)
[2018-11-03] MEDS: MEMANTINE 10 MG TABLET PO SCH ×2 (09:13→21:10)
[2018-11-03] MEDS: ATORVASTATIN 40 MG TABLET PO SCH (09:13)
[2018-11-03] MEDS: PANTOPRAZOLE 40 MG TABLET PO SCH ×2 (09:13→21:10)
[2018-11-03] MEDS: BACITRACIN OINT 0.9 GM PACK TOP SCH (09:13)
[2018-11-03] MEDS: ASPIRIN EC 81 MG TABLET PO SCH (09:13)
[2018-11-03] MEDS: METOPROLOL TARTRATE 25 MG TABLET PO SCH ×2 (09:15→21:11)
[2018-11-03] MEDS: CARBOXYMETHYLCELLULOSE 1% OPH SOLN BOTH EYES SCH ×2 (17:16→22:48)
[2018-11-03] MEDS: PRAMIPEXOLE 1 MG TABLET PO SCH (21:10)
[2018-11-03] MEDS: DONEPEZIL 10 MG TABLET PO SCH (21:11)
[2018-11-03] MEDS: INSULIN GLARGINE 100 UNIT/ML SUBCUT SCH (21:40)
[2018-11-04] MEDS: ALBUTEROL/IPRATROPIUM 3 ML NEB RESP TX SCH ×3 (03:00→10:59)
[2018-11-04 04:10] LABS: Basophils % 0.4 % (0.0-0.8); Eosinophils # 0.2 10*3/uL (0.0-0.87); Hematocrit 27.6 VOL% (42.0-52.0); Hemoglobin 9.1 GM/DL (14.0-18.0); Immature Granulocytes % 0.3 %; Immature Granulocytes Absolute 0.02 #; Lymphocytes # 0.9 10*3/uL (1.4-4.0); Lymphocytes % 12.7 % (21.2-54.2); Mean Corpuscular Volume 89.3 FL (87-102); Mean Platelet Volume 11.5 FL (9.6-12.0); Monocytes % 8.6 % (1.7-12.7); Platelet Count 242 T/CUMM (130-400); Red Blood Count 3.09 MC/CUMM (3.8-5.5); Red Cell Distribution Width 15.9 % (9.3-17.3); White Blood Count 7.2 T/CUMM (4-12)
[2018-11-04] MEDS: LEVOTHYROXINE 175 MCG TABLET PO SCH (06:39)
[2018-11-04] MEDS: DOCUSATE SODIUM 100 MG CAPSULE PO SCH (09:08)
[2018-11-04] MEDS: ATORVASTATIN 40 MG TABLET PO SCH (09:08)
[2018-11-04] MEDS: CHOLECALCIFEROL 1,000 UNIT TABLET PO SCH (09:08)
[2018-11-04] MEDS: ASPIRIN EC 81 MG TABLET PO SCH (09:08)
[2018-11-04] MEDS: MEMANTINE 10 MG TABLET PO SCH (09:09)
[2018-11-04] MEDS: FOLIC ACID 1 MG TABLET PO SCH (09:09)
[2018-11-04] MEDS: POLYETHYLENE GLYCOL POWDER 17 GM PACK PO SCH (09:09)
[2018-11-04] MEDS: FERROUS SULFATE 325 MG TABLET PO SCH (09:09)
[2018-11-04] MEDS: PANTOPRAZOLE 40 MG TABLET PO SCH (09:09)
[2018-11-04] MEDS: BACITRACIN OINT 0.9 GM PACK TOP SCH (09:10)
[2018-11-04] MEDS: METOPROLOL TARTRATE 25 MG TABLET PO SCH (09:15)
[2018-11-04] MEDS: INSULIN REGULAR 100 UNIT/ML SUBCUT SCH ×2 (09:15→13:20)
[2018-11-04] MEDS: CARBOXYMETHYLCELLULOSE 1% OPH SOLN BOTH EYES SCH (09:15)
[2018-11-04] MEDS: DEXTROSE 5% LACTATED RINGERS 1,000 ML IV SCH (11:16)
[2018-11-04 11:45] VITALS: BP 110/62
== END 2018-11-04 14:20 | DRG 481 ==
LOC: EDUNIT# → EDBD → N.ED 09:14 → N.EDINP 11:27 → SUATTDRO 11:27 → N.EDINP 12:24 → N.3E 12:27
PROVIDERS: ADMIT Internal Medicine Nephrology; ATTEND Internal Medicine Nephrology